=== PATIENT | female | born 1945 | race Caucasian/White ===

== ENCOUNTER 2018-12-07 14:54 | Outpatient (RCR) | payer MEDICARE, OTHER, SELFPAY ==
[~2018-12-07 14:54] MED LIST: ADV500INH INH; ATOR1TAB19 PO; AZIT500T2 PO; BISA5TAB7 PO; BREO1INH3 PO; CALC500C16 PO; CALTCHW5 PO; CIDA500T2 PO; COLA100C5 PO; DICL13PA TD; FOSA70TA PO; IBUPOTC PO; IPRA0.00 NEB; LEVA750T7 PO; LEVOTHROID PO; LIDO1OIN2 TOP; LIDO5DIS41 TD; MIRA3350 PO; MUCI600T37 PO; MULTCAP PO; PROAAER10 INH; PROP10TA56 PO; PROTPAK PO; SPIR1CAP INH; SYNT100T PO
== END 2018-12-09 ==
LOC: M PR 14:54
PROVIDERS: ATTEND Internal Medicine Pulmonary Disease
DX: J44.9 Chronic obstructive pulmonary disease, unspecified (principal)
CPT/HCPCS: G0424 ×3

== ENCOUNTER → 2019-01-09 | Outpatient (RCR) | payer MEDICARE | LOC: M PR 12-12 10:24 | PROVIDERS: ATTEND Internal Medicine Pulmonary Disease | DX: J44.9 Chronic obstructive pulmonary disease, unspecified (principal) | CPT/HCPCS: G0424 ×10 ==

== ENCOUNTER 2019-02-07 11:10 | Outpatient (RCR) | payer MEDICARE | END 2019-02-09 | LOC: M PR 11:10 | PROVIDERS: ATTEND Internal Medicine Pulmonary Disease | DX: J44.9 Chronic obstructive pulmonary disease, unspecified (principal) | CPT/HCPCS: G0424 ×7 ==

== ENCOUNTER 2019-02-27 13:18 | Outpatient (RCR) | payer MEDICARE | END 2019-03-11 | LOC: M PR 13:18 | PROVIDERS: ATTEND Internal Medicine Pulmonary Disease | DX: J44.9 Chronic obstructive pulmonary disease, unspecified (principal) | CPT/HCPCS: G0424 ×5 ==

== ENCOUNTER → 2020-02-12 | Outpatient (REF) | payer MEDICARE ==
[~2020-02-12] MED LIST changes: -AZIT500T2 PO; +AZIT500T5 PO
[2020-02-12 17:59] LABS: APPEARANCE, URINE CLEAR (CLEAR); BACTERIA, URINE AUTO NEGATIVE (NEGATIVE); BILIRUBIN, URINE AUTO NEGATIVE (NEGATIVE); BLOOD, URINE BLOOD NEGATIVE (NEGATIVE); COLOR, URINE COLORLESS (YELLOW); GLUCOSE, URINE (UA) AUTO NEGATIVE (NEGATIVE); KETONE, URINE AUTO NEGATIVE (NEGATIVE); LEUKOCYTE ESTERASE, URINE AUTO NEGATIVE (NEGATIVE); NITRITE, URINE AUTO NEGATIVE (NEGATIVE); PROTEIN, URINE AUTO NEGATIVE (NEGATIVE); RBC, URINE AUTO 0 /HPF (0-3); SPECIFIC GRAVITY URINE AUTO 1.003 (1.002-1.035); SQUAMOUS EPITHELIAL CELL UR AU 0 /HPF (0-6); UROBILINOGEN, URINE AUTO 0.2 mg/dL (0.0-2.0); WBC, URINE AUTO 0 /HPF (0-3)
== END ==
LOC: M LAB REF 17:06
PROVIDERS: ATTEND Nurse Practitioner Family
DX: R39.81 Functional urinary incontinence (principal)
CPT/HCPCS: 51798; 81000; 81001; 87086; G0463

== ENCOUNTER → 2020-03-09 | Outpatient (CLI) | payer MEDICARE ==
--- NOTE | 2020-03-23 16:35 | REP ---
PET CT HISTORY: Other nonspecific abnormal finding of lung field. TECHNIQUE: 61 minutes following the intravenous injection of an 8.39 mCi dose of F18 fluorodeoxyglucose (FDG), three-dimensional PET CT imaging is acquired from the skull base to the proximal thighs in the usual fashion. COMPARISON: Chest CT study has been retrieved from [facility] dated 02/06/2020. This was read as showing a 1.3 cm spiculated density in the left upper lobe and an 8.6 mm spiculated nodule in the left upper lobe. Chest CT is also reviewed from 10/20/2015. PET CT FINDINGS: The recently identified spiculated nodules in the left upper lobe show visible, but non-hypermetabolic FDG accumulation. Maximum standard uptake value is only 1.33. There is no discernable uptake in the remaining 5 mm nodule in the left upper lobe. There is a non-hypermetabolic, but visible uptake, n an area of pleural parenchymal scarring in the right apex, maximum standard uptake value 1.49. No other abnormal pulmonary parenchymal FDG accumulation is seen. No abnormal hilar or mediastinal david uptake is observed. The head and neck soft tissues are unremarkable. In the abdomen and pelvis, normal FDG distribution is seen. No abnormal abdominal or pelvis hypermetabolic focus is seen. IMPRESSION: Negative PET scintigraphy. No hypermetabolic uptake in the left upper lobe nodules. Continued CT follow-up recommended. MTDD
== END ==
LOC: M PLARAD 10:20
PROVIDERS: ATTEND Internal Medicine Pulmonary Disease
DX: R91.8 Other nonspecific abnormal finding of lung field (principal)
CPT/HCPCS: 78815; A9552

== ENCOUNTER → 2020-06-25 | Outpatient (CLI) | payer MEDICARE ==
--- NOTE | 2020-06-26 05:54 | REP ---
INDICATION: COPD COMPARISON: Outside examination dated 02/06/2020. PET-CT dated 03/09/2020 TECHNIQUE: Axial noncontrast images from the thoracic inlet to the upper abdomen with coronal and sagittal reformations. This CT examination was performed using the following dose reduction techniques: Automated exposure control, adjustment of mA and/or kv according to the patient's size, and use of iterative reconstruction technique. FINDINGS: Moderate to advanced COPD/emphysematous changes with scattered scarring and bronchiectasis again noted and stable. New or nodules identified on the outside examination dated 02/06/2020 appear to have essentially resolved. PET-CT exam dated 03/09/2020 was negative for hypermetabolic activity. No new consolidation, significant nodule or mass lesion identified. No pleural effusion. No pneumothorax. Mediastinum demonstrates atherosclerotic changes to the thoracic aorta and coronary arteries without aortic aneurysm or cardiomegaly. No pericardial effusion. No significant adenopathy. Surrounding musculoskeletal structures demonstrate age-related changes without acute osseous abnormality. IMPRESSION: 1. Moderate to advanced COPD/emphysematous changes with scattered scarring similar to prior examination. Previously noted left upper lobe nodules have essentially resolved. 2. No new significant consolidation, nodule/mass, or effusion. 3. Consider annual low-dose CT lung screening evaluation given the patient's high risk factors. <Electronically signed by Brant Cohn > 06/26/20 [id number]
== END ==
LOC: M RAD 14:01
PROVIDERS: ATTEND Internal Medicine Pulmonary Disease
DX: J44.9 Chronic obstructive pulmonary disease, unspecified (principal)

== ENCOUNTER → 2020-08-06 | Outpatient (CLI) | payer MEDICARE ==
[~2020-08-06] MED LIST changes: +ALBU83IN INH; +D31000TA2 PO; +NO ITAB PO; +SALINE; +SPIR12.9 INH; +SYNT88TA2 PO; +VITA-243 PO; +ZINC1TAB2 PO; +acetylcysteine INH
== END ==
LOC: M LABSMTC 09:49
PROVIDERS: ATTEND Anesthesiology
DX: Z01.812 Encounter for preprocedural laboratory examination (principal); Z20.822 Contact with and (suspected) exposure to COVID-19

== ENCOUNTER 2020-08-11 09:14 | Day surgery (SDC) | payer MEDICARE ==
[~2020-08-11] VITALS: Ht 162.6 cm; Wt 61.4 kg
[~2020-08-11 09:14] MED LIST changes: +NS 1,000 ML IV ONE
[2020-08-11] MEDS ORDERED: MUCI600T31 PO (09:43)
[2020-08-11] MEDS ORDERED: PROAAER10 INH (09:43)
[2020-08-11] MEDS ORDERED: propofoL 200 MG/20 ML VIAL As Ordered ONE (10:20)
[2020-08-11] MEDS ORDERED: LIDOCAINE 2% 100MG/5ML SDV (FOR ANES.) As Ordered ONE (10:20)
--- NOTE | 2020-08-11 11:26 | ROOR ---
Patient Name: Anabelle Oro Procedure Date: 08/11/2020 10:32 AM Date of : 1945 Age: 75 Room: [facility] Gender: Female Note Status: Finalized Procedure: Colonoscopy Indications: High risk colon cancer surveillance: Personal history of colonic polyps, Last colonoscopy: May 2015 Providers: Hernandez JACKSON MD Referring MD: MICHA HOPKINS DO Requesting Provider: Medicines: Monitored Anesthesia Care Complications: No immediate complications. Procedure: Pre-Anesthesia Assessment: - The heart rate, respiratory rate, oxygen saturations, blood pressure, adequacy of pulmonary ventilation, and response to care were monitored throughout the procedure. The Colonoscope was introduced through the anus and advanced to the terminal ileum, with identification of the appendiceal orifice and IC valve. The colonoscopy was performed without difficulty. The patient tolerated the procedure well. The quality of the bowel preparation was good. Findings: The perianal and digital rectal examinations were normal. A 20 mm polyp was found in the distal sigmoid colon. The polyp was carpet-like. Polypectomy was attempted, initially using a piecemeal technique with a hot snare. Most of the polyp was removed, however polyp resection was incomplete with this device. This intervention then required a different device and polypectomy technique. The remainder of the polyp was removed with a piecemeal technique using a small cold snare. Resection and retrieval were complete. Area was tattooed with an injection of 1 mL of Mariely ink just distal to the polypectomy site. Four sessile polyps were found in the descending colon, splenic flexure and hepatic flexure. The polyps were diminutive in size. These polyps were removed with a cold snare. Resection and retrieval were complete. Multiple diverticula were found in the sigmoid colon. Small Internal Hemorrhoids. Impression: - One 15-20 mm flat polyp in the distal sigmoid colon, removed piecemeal using a hot and cold snares. Resected and retrieved. Tattooed. - Four diminutive polyps in the descending colon, at the splenic flexure and at the hepatic flexure, removed with a cold snare. Resected and retrieved. - Diverticulosis in the sigmoid colon. - Small Internal Hemorrhoids. Recommendation: - Repeat colonoscopy for surveillance based on pathology results. - Telephone endoscopist for pathology results in 2 weeks. Procedure Code(s): --- Professional --- 52066, Colonoscopy, flexible; with removal of tumor(s), polyp(s), or other lesion(s) by snare technique 35692, Colonoscopy, flexible; with directed submucosal injection(s), any substance Diagnosis Code(s): --- Professional --- K63.5, Polyp of colon Z86.010, Personal history of colonic polyps K57.30, Diverticulosis of large intestine without perforation or abscess without bleeding CPT copyright 2019 [employer]. All rights reserved. The codes documented in this report are preliminary and upon canal boat operator review may be revised to meet current compliance requirements. Hernandez Jackson MD Hernandez JACKSON MD 08/11/2020 11:26:53 AM Electronically signed by Hernandez JACKSON MD Number of Addenda: 0 Note Initiated On: 08/11/2020 10:32 AM Estimated Blood Loss: Estimated blood loss: none.
[2020-08-11 11:40] VITALS: BP 128/74
== END 2020-08-11 12:07 | disposition home or self-care (01) ==
LOC: M OPP 09:14
PROVIDERS: ATTEND Internal Medicine Gastroenterology
DX: Z12.11 Encounter for screening for malignant neoplasm of colon (principal); Z86.010 Personal history of colon polyps; Z80.0 Family history of malignant neoplasm of digestive organs; K57.30 Diverticulosis of large intestine without perforation or abscess without bleeding; K63.5 Polyp of colon; K64.8 Other hemorrhoids; E03.9 Hypothyroidism, unspecified; J44.9 Chronic obstructive pulmonary disease, unspecified; Z79.899 Other long term (current) drug therapy

== ENCOUNTER → 2020-12-22 | Outpatient (CLI) | payer MEDICARE ==
[~2020-12-22] MED LIST changes: +MUCI600T31 PO; -NS 1,000 ML IV ONE
== END ==
LOC: M PLAIMG 13:22
PROVIDERS: ATTEND Internal Medicine
DX: J44.9 Chronic obstructive pulmonary disease, unspecified (principal)

== ENCOUNTER → 2021-01-01 | Outpatient (CLI) | payer MEDICARE ==
--- NOTE | 2021-01-01 13:51 | REP ---
INDICATION: DYSPNEA, STAGE 4 COPD COMPARISON: 10/24/2015. CT 12/22/2020. TECHNIQUE: PA/Lateral FINDINGS: Lungs: There is mild diffuse chronic interstitial prominence with no consolidating infiltrate. There is mild hyperinflation. Heart: Normal in size. Mediastinum: Mediastinal silhouette unremarkable. Pleural angles: Unremarkable.. Bones and soft tissues: Unremarkable. IMPRESSION: No acute pulmonary disease. A stable chronic changes. <Electronically signed by Danial Mandujano > 01/01/21 [id number]
--- NOTE | 2021-01-01 14:38 | REP ---
INDICATION: DYSPNEA, STAGE 4 COPD. COMPARISON: Comparison is made with today's chest x-ray.. TECHNIQUE: 1.0 mCi of technetium 99m DTPA aerosol is utilized for the ventilation study and is followed by a 5.5 mCi dose of intravenous technetium 99m MAA for the perfusion study. A sequence of 8 planar images are acquired for each portion of the study. FINDINGS: Ventilation study shows is mild central bronchial deposition of inspired ventilatory tracer. There is very patchy abnormal uptake pattern throughout the lung celeste on ventilation study consistent with severe COPD. Multiple ventilation defects are noted bilaterally. The perfusion study shows slightly more homogeneous but still patchy uptake bilaterally. There are multiple matched V/Q defects bilaterally. The perfusion study shows better distribution of tracer to than the ventilation study. No mismatch defect is appreciated. IMPRESSION: Intermediate to indeterminate probability for pulmonary embolus. Severe COPD. Multiple matched defects. No mismatched defect is appreciated. <Electronically signed by Enmanuel Romero > 01/01/21 [id number]
== END ==
LOC: M RAD 13:01
PROVIDERS: ATTEND Internal Medicine
DX: R60.0 Localized edema (principal); J44.9 Chronic obstructive pulmonary disease, unspecified; J84.9 Interstitial pulmonary disease, unspecified
CPT/HCPCS: 71046; 78582; A9540; A9567

== ENCOUNTER → 2021-01-25 | Outpatient (CLI) | payer MEDICARE ==
--- NOTE | 2021-01-25 14:57 | REP ---
INDICATION: DIAGNOSING SOLITARY PULMONARY NODULE. COMPARISON: Comparison is made with CT chest December 22, 2020.. TECHNIQUE: Fifty minutes following the intravenous injection of a 9.0 mCi dose of F-18 FDG, three-dimensional PET scintigraphy is acquired from the skull base to the proximal thighs. Triplanar noncontrast CT scanning is acquired through the same anatomic range for attenuation correction, and image registration with scan parameters optimized to minimize radiation exposure to the patient. PET scintigraphy and CT datasets were fused and displayed on a workstation with multiplanar and projection display capability. FINDINGS: The areolar nodular density in the right lung apex appears morphologically improved compared with the recent chest CT. It does show a visible although non hypermetabolic uptake. Maximum standard uptake value is 1.78. The left upper lobe contains 2 small stable nodules which do not show any discernible FDG uptake. No hilar or mediastinal hypermetabolic uptake is seen. In the abdomen and pelvis, normal hepatic, splenic, gastrointestinal, and genitourinary FDG accumulation is seen. No abnormal hypermetabolic uptake is seen in the abdomen or pelvis. Head and neck soft tissues are unremarkable. IMPRESSION: Right upper lobe shows visible but non hypermetabolic uptake. CT follow-up is recommended. Otherwise negative PET scintigraphy. <Electronically signed by Enmanuel Romero > 01/25/21 [id number]
== END ==
LOC: M PLARAD 11:52
PROVIDERS: ATTEND Internal Medicine Pulmonary Disease
DX: R91.1 Solitary pulmonary nodule (principal)
CPT/HCPCS: 78815; A9552

== ENCOUNTER → 2021-03-24 | Outpatient (CLI) | payer MEDICARE ==
--- NOTE | 2021-03-27 11:28 | ECHO ---
ECHOCARDIOGRAM DATE OF PROCEDURE: 03/24/2021 Age: 75 Gender: Female Height: Weight: REFERRING PROVIDER: Tammi Maradiaga M.D. PATIENT LOCATION: Outpatient. REASON FOR THE STUDY: Shortness of breath, chronic obstructive pulmonary disease (COPD). MEASUREMENTS: 2D Measurements: IVS 0.9 cm LV 4.1 cm LVPW 0.8 cm LA 2.1 cm Aorta 3.0 Doppler Measurements: Mitral E 0.54 Mitral A 0.8 with a ratio of 0.7 2D COMMENTS: 1. Normal left ventricular size, wall thickness and normal global left ventricular systolic function. The estimated left ventricular systolic ejection fraction is 60-65%. 2. Normal left atrium. Normal right atrium and right ventricle. 3. The atrial septum appeared to be normal without evidence of defect or shunt. 4. Normal aortic root. 5. No pericardial effusion seen. 6. Minimally calcified aortic valve with normal leaflet excursion. Mildly calcified mitral annulus with normal anterior mitral valve leaflet motion. Normal tricuspid valve. The pulmonic valve and proximal pulmonary artery branches were not well visualized. 7. The inferior vena cava was not visualized. DOPPLER: It detects mild aortic regurgitation, trace mitral regurgitation and trace tricuspid regurgitation. Abnormal relaxation pattern was noted across the mitral valve leaflets as well as the mitral valve annulus consistent with features of grade 1 left ventricular diastolic dysfunction. IMPRESSION: 1. Normal global left ventricular systolic function. There are some features of grade 1 left ventricular diastolic dysfunction manifested by abnormal relaxation. 2. Aortic valve sclerosis with mild aortic regurgitation but no aortic stenosis. 3. Mitral annulus calcification with trace mitral regurgitation. 4. Trace tricuspid regurgitation. Calculated pulmonary artery pressure appeared to be normal using the tricuspid valve velocity.
== END ==
LOC: M CARPUL 12:19
PROVIDERS: ATTEND Internal Medicine Pulmonary Disease
DX: J44.9 Chronic obstructive pulmonary disease, unspecified (principal); R94.31 Abnormal electrocardiogram [ECG] [EKG]

== ENCOUNTER → 2021-08-25 | Outpatient (CLI) | payer MEDICARE ==
[~2021-08-25] MED LIST changes: -D31000TA2 PO; +VITA100093 PO
== END ==
LOC: M PLAIMG 14:53
PROVIDERS: ATTEND Internal Medicine Pulmonary Disease
DX: R91.8 Other nonspecific abnormal finding of lung field (principal)

== ENCOUNTER → 2021-10-18 | Outpatient (CLI) | payer MEDICARE | LOC: M PLARAD 09:01 | PROVIDERS: ATTEND Internal Medicine Pulmonary Disease | DX: R91.8 Other nonspecific abnormal finding of lung field (principal); J43.2 Centrilobular emphysema; I70.0 Atherosclerosis of aorta; I25.10 Atherosclerotic heart disease of native coronary artery without angina pectoris; K57.30 Diverticulosis of large intestine without perforation or abscess without bleeding; N28.1 Cyst of kidney, acquired | CPT/HCPCS: 78815; A9552 ==

== ENCOUNTER → 2022-01-19 | Outpatient (CLI) | payer MEDICARE ==
[~2022-01-19] MED LIST changes: +ALBU2.5V10 INH; -ALBU83IN INH
== END ==
LOC: M PLAIMG 10:47
PROVIDERS: ATTEND Internal Medicine Pulmonary Disease
DX: R91.8 Other nonspecific abnormal finding of lung field (principal)

== ENCOUNTER 2022-06-30 21:00 | Emergency (ER) | payer MEDICARE ==
[~2022-06-30] VITALS: Ht 162.6 cm; Wt 59.1 kg
[~2022-06-30 21:00] MED LIST changes: +ALEN70TA87 PO; -FOSA70TA PO
[2022-06-30 23:05] LABS: APPEARANCE, URINE MANUAL CLEAR (CLEAR); COLOR, URINE MANUAL COLORLESS (YELLOW); PH,URINE MAN 8.5 UNITS (5.0 - 7.0)
[2022-06-30 23:06] LABS: BILIRUBIN, URINE MANUAL NEGATIVE (NEGATIVE); BLOOD URINE MANUAL NEGATIVE (NEGATIVE); GLUCOSE, URINE (UA) MANUAL NEGATIVE (NEGATIVE); KETONE, URINE MANUAL NEGATIVE (NEGATIVE); LEUKOCYTE ESTERASE, URINE MAN NEGATIVE (NEGATIVE); NITRITE, URINE MANUAL NEGATIVE (NEGATIVE); PROTEIN, URINE MANUAL NEGATIVE (NEGATIVE); UROBILINOGEN, URINE MANUAL NORMAL (NORMAL)
[2022-06-30 23:06] LABS: BASO # 0.1 10^3/uL (0.0-0.2); BASO % 0.9 % (0.0-1.0); EOS # 0.5 10^3/uL (0.0-0.5); EOS % 8.1 % (0.0-3.0); HEMATOCRIT 37.7 % (36.0-47.0); LYMPH # 1.1 10^3/uL (1.5-5.0); LYMPH % 16.8 % (24.0-44.0); MEAN CORPUSCULAR HEMOGLOBIN 29.2 pg (27.0-33.0); MEAN CORPUSCULAR HGB CONC 31.8 g/dl (32.0-36.5); MEAN CORPUSCULAR VOLUME 91.7 fl (80.0-96.0); MONO # 1.1 10^3/uL (0.0-0.8); MONO % 16.5 % (2.0-8.0); NEUTROPHILS # 3.8 10^3/uL (1.5-8.5); NEUTROPHILS % 57.2 % (36.0-66.0); PLATELET COUNT, AUTOMATED 260 10^3/uL (150-450); RED BLOOD COUNT 4.11 10^6/uL (4.00-5.40); WHITE BLOOD COUNT 6.6 10^3/uL (4.0-10.0)
[2022-06-30 23:27] LABS: BLOOD UREA NITROGEN 11 MG/DL (9-23); CALCIUM LEVEL 9.2 MG/DL (8.3-10.6); CARBON DIOXIDE LEVEL 33 MMOL/L (20-31); CHLORIDE LEVEL 99 MMOL/L (98-107); CREATININE FOR GFR 0.62 MG/DL (0.55-1.30); GLOMERULAR FILTRATION RATE > 60.0 (>39); GLUCOSE, FASTING 124 MG/DL (74-106); POTASSIUM SERUM 4.3 MMOL/L (3.5-5.1); SODIUM LEVEL 137 MMOL/L (136-145)
[2022-07-01] MEDS ORDERED: KETOROLAC 30 MG/ML 1ML VIAL IV ONE (03:20)
[2022-07-01 04:02] LABS: LIPASE 29 U/L (12-53)
[2022-07-01 04:04] LABS: ALBUMIN 3.2 G/DL (3.2-5.2); ALKALINE PHOSPHATASE 99 U/L (46-116); ALT/SGPT 19 U/L (7.0-40); AST/SGOT 20 U/L (<34); BILIRUBIN,DIRECT < 0.1 MG/DL (<0.4); BILIRUBIN,TOTAL 0.2 MG/DL (0.3-1.2); TOTAL PROTEIN 6.5 G/DL (5.7-8.2)
[2022-07-01 06:15] VITALS: BP 110/62
== END 2022-07-01 06:32 | disposition home or self-care (01) ==
LOC: M ED 21:00
DX: K59.00 Constipation, unspecified (principal); J44.9 Chronic obstructive pulmonary disease, unspecified; J43.9 Emphysema, unspecified; E03.9 Hypothyroidism, unspecified; Z90.49 Acquired absence of other specified parts of digestive tract; N28.1 Cyst of kidney, acquired; Z79.51 Long term (current) use of inhaled steroids; Z79.890 Hormone replacement therapy; Z79.899 Other long term (current) drug therapy

== ENCOUNTER → 2022-12-23 | Outpatient (CLI) | payer MEDICARE | LOC: M RAD 10:50 | PROVIDERS: ATTEND Internal Medicine Pulmonary Disease | DX: R91.8 Other nonspecific abnormal finding of lung field (principal); J43.9 Emphysema, unspecified; I25.10 Atherosclerotic heart disease of native coronary artery without angina pectoris; I70.0 Atherosclerosis of aorta; K44.9 Diaphragmatic hernia without obstruction or gangrene; N20.0 Calculus of kidney ==

== ENCOUNTER 2023-05-19 09:59 | Day surgery (SDC) | payer MEDICARE ==
[~2023-05-19] VITALS: Ht 162.6 cm; Wt 55.2 kg
[~2023-05-19 09:59] MED LIST changes: +GUAI1TAB72 PO; +NS 1,000 ML IV ONE; +PEPC1TAB5 PO; +PROA1AER2 INH; +SYMB16INH INH
[2023-05-19] MEDS ORDERED: propofoL 200 MG/20 ML VIAL As Ordered ONE (11:46)
[2023-05-19] MEDS ORDERED: LIDOCAINE 2% 100MG/5ML SDV (FOR ANES.) As Ordered ONE (11:46)
[2023-05-19 12:17] VITALS: TEMP 97.6
[2023-05-19 12:30] VITALS: BP 133/56; O2SAT 100
== END 2023-05-19 12:54 | disposition home or self-care (01) ==
LOC: M OPP 09:59
PROVIDERS: ATTEND Internal Medicine Gastroenterology
DX: Z86.010 Personal history of colon polyps (principal); Z80.0 Family history of malignant neoplasm of digestive organs; K63.5 Polyp of colon; D12.8 Benign neoplasm of rectum; K57.30 Diverticulosis of large intestine without perforation or abscess without bleeding; R12 Heartburn; G47.8 Other sleep disorders; Z79.02 Long term (current) use of antithrombotics/antiplatelets; Z79.1 Long term (current) use of non-steroidal anti-inflammatories (NSAID); Z79.2 Long term (current) use of antibiotics; Z79.51 Long term (current) use of inhaled steroids; Z79.890 Hormone replacement therapy; Z79.899 Other long term (current) drug therapy; Z88.1 Allergy status to other antibiotic agents

== ENCOUNTER 2023-06-15 11:23 | Inpatient (IN) | payer MEDICARE ==
[~2023-06-15] VITALS: Ht 162.6 cm; Wt 56.1 kg
[~2023-06-15 11:23] MED LIST changes: -NS 1,000 ML IV ONE
[2023-06-15 12:53] LABS: BASO % 0.2 % (0.0-1.0); EOS # 0.1 10^3/uL (0.0-0.5); EOS % 1.1 % (0.0-3.0); HEMATOCRIT 35.5 % (36.0-47.0); HEMOGLOBIN 11.4 g/dl (12.0-15.5); LYMPH # 0.7 10^3/uL (1.5-5.0); MEAN CORPUSCULAR HGB CONC 32.1 g/dl (32.0-36.5); MEAN CORPUSCULAR VOLUME 93.4 fl (80.0-96.0); MONO # 0.6 10^3/uL (0.0-0.8); MONO % 13.8 % (2.0-8.0); NEUTROPHILS % 67.8 % (36.0-66.0); PLATELET COUNT, AUTOMATED 204 10^3/uL (150-450); WHITE BLOOD COUNT 4.4 10^3/uL (4.0-10.0)
[2023-06-15] MEDS ORDERED: IPRATROPIUM 0.5MG/ALBUTEROL 2.5MG INH SOL UD 3ML (DUONEB) NEB ONE ×3 (13:00→15:40)
[2023-06-15 13:04] LABS: INR 1.01
[2023-06-15 13:05] LABS: PARTIAL THROMBOPLASTIN TIME 27.7 SECONDS (24.8-34.2)
[2023-06-15 13:15] LABS: CK-MB VALUE MASS 1.9 NG/ML (<3.6)
[2023-06-15 13:18] LABS: ALBUMIN 3.3 G/DL (3.2-5.2); ALKALINE PHOSPHATASE 82 U/L (46-116); ALT/SGPT 27 U/L (7.0-40); AST/SGOT 24 U/L (<34); BILIRUBIN,DIRECT 0.1 MG/DL (<0.4); BILIRUBIN,TOTAL 0.3 MG/DL (0.3-1.2); BLOOD UREA NITROGEN 10 MG/DL (9-23); CALCIUM LEVEL 8.4 MG/DL (8.3-10.6); CARBON DIOXIDE LEVEL 38 MMOL/L (20-31); CHLORIDE LEVEL 96 MMOL/L (98-107); CPK CREATINE PHOSPHOKINASE 47 U/L (34-145); CREATININE FOR GFR 0.49 MG/DL (0.55-1.30); GLOMERULAR FILTRATION RATE > 60.0 (>32); GLUCOSE, FASTING 105 MG/DL (74-106); MB/CK RELATIVE INDEX 4.04 (< OR =4); SODIUM LEVEL 133 MMOL/L (136-145); THYROID STIMULATING HORMONE 9.593 uIU/ML (0.55-4.78); TOTAL PROTEIN 6.1 G/DL (5.7-8.2)
[2023-06-15 13:20] LABS: FREE T4 1.37 NG/DL (0.89-1.76)
[2023-06-15 13:38] LABS: ABG BASE EXCESS 9.2 (-2.0-2.0); ABG HCO3 36.2 MMOL/L (22.0-26.0); ABG O2 SATURATION 96.1 % (95.0-99.0); ABG PARTIAL PRESSURE O2 81.2 mmHg (75.0-100.0); ABG STANDARD HCO3 32.9 MMOL/L. (22.0-26.0); ABG TOTAL CO2 38.1 MMOL/L (23.0-31.0); ABG pH (ARTERIAL) 7.388 UNITS (7.350-7.450)
[2023-06-15 13:40] LABS: ABG PARTIAL PRESSURE CO2 61.4 mmHg (35.0-45.0)
[2023-06-15 14:03] LABS: CK-MB VALUE MASS 1.7 NG/ML (<3.6)
[2023-06-15 14:04] LABS: MB/CK RELATIVE INDEX 4.14 (< OR =4)
[2023-06-15] MEDS ORDERED: methylPREDNISolone 125MG 2ML VIAL IV ONE (14:05)
[2023-06-15] MEDS ORDERED: ISOVUE-370 76% 100ML VIAL As Ordered ONE (14:11)
[2023-06-15 16:52] VITALS: O2SAT 92
[2023-06-15] MEDS ORDERED: AZIT-12 PO (17:52)
[2023-06-15] MEDS ORDERED: HOME MED LIST COMPLETE! XX SCH (17:55)
[2023-06-15] MEDS ORDERED: MOM 30ML SUSPENSION UDC PO PRN (18:15)
[2023-06-15 19:09] LABS: C REACTIVE PROTEIN QUANTITATIV 1.2 MG/DL (<1.0)
[2023-06-15 19:32] LABS: PROCALCITONIN 0.08 ng/ml
[2023-06-15] MEDS ORDERED: COMBIVENT RESPIMAT 100-20MCG INHALER 4GM INH SCH (20:00)
[2023-06-15 20:19] LABS: INR 1.01
[2023-06-15] MEDS: ATORVASTATIN 10 MG TAB PO SCH (20:24)
[2023-06-15] MEDS: AZITHROMYCIN 250MG TABLET PO SCH (20:25)
[2023-06-15] MEDS: SYMBICORT 160/4.5MCG INHALER 6GM INH SCH (20:31)
[2023-06-15] MEDS: COMBIVENT RESPIMAT 100-20MCG INHALER 4GM INH SCH (20:31)
[2023-06-15] MEDS: PROPRANOLOL 10 MG TAB PO SCH (20:36)
[2023-06-15] MEDS: MIRALAX *UNIT DOSE* 17GM PACKET PO SCH (21:00)
[2023-06-15] MEDS: DOCUSATE SODIUM 100MG CAPSULE PO SCH (21:00)
[2023-06-15] MEDS: METAMUCIL (PSYLLIUM) PACKET PO SCH (21:00)
[2023-06-16] VITALS (12 sets, daily range): BP systolic 130–180; BP diastolic 63–90; TEMP 96.2–98.6; O2SAT 93–100
[2023-06-16] MEDS: methylPREDNISolone 125MG 2ML VIAL IV SCH ×4 (01:54→23:51)
[2023-06-16] MEDS: CAPTOpril 6.25 MG PER 1/2 TABLET PO SCH ×2 (01:55→06:00)
[2023-06-16] MEDS: COMBIVENT RESPIMAT 100-20MCG INHALER 4GM INH SCH ×6 (02:34→19:33)
[2023-06-16] MEDS: ACETAMINOPHEN TAB 650MG DOSE (2X325MG) PO PRN ×2 (02:51→18:46)
[2023-06-16 04:59] LABS: HEMATOCRIT 33.3 % (36.0-47.0); HEMOGLOBIN 10.8 g/dl (12.0-15.5); MEAN CORPUSCULAR HEMOGLOBIN 29.8 pg (27.0-33.0); MEAN CORPUSCULAR HGB CONC 32.4 g/dl (32.0-36.5); MEAN CORPUSCULAR VOLUME 91.7 fl (80.0-96.0); PLATELET COUNT, AUTOMATED 217 10^3/uL (150-450); RED BLOOD COUNT 3.63 10^6/uL (4.00-5.40); WHITE BLOOD COUNT 2.9 10^3/uL (4.0-10.0)
[2023-06-16 05:22] LABS: BLOOD UREA NITROGEN 11 MG/DL (9-23); CALCIUM LEVEL 8.7 MG/DL (8.3-10.6); CARBON DIOXIDE LEVEL 35 MMOL/L (20-31); CHLORIDE LEVEL 94 MMOL/L (98-107); GLOMERULAR FILTRATION RATE > 60.0 (>32); GLUCOSE, FASTING 141 MG/DL (74-106); POTASSIUM SERUM 4.2 MMOL/L (3.5-5.1); SODIUM LEVEL 135 MMOL/L (136-145)
[2023-06-16] MEDS: LEVOTHYROXINE 100MCG TABLET (0.1MG) PO SCH (06:02)
[2023-06-16] MEDS ORDERED: LABETALOL 100MG/20ML VIAL IV ONE (06:25)
[2023-06-16] MEDS: MIRALAX *UNIT DOSE* 17GM PACKET PO SCH ×2 (08:06→20:36)
[2023-06-16] MEDS: METAMUCIL (PSYLLIUM) PACKET PO SCH ×2 (08:06→20:36)
[2023-06-16] MEDS: AZITHROMYCIN 250MG TABLET PO SCH (08:06)
[2023-06-16] MEDS: PROPRANOLOL 10 MG TAB PO SCH ×2 (08:06→20:36)
[2023-06-16] MEDS: lisinopriL 40MG TAB PO SCH (08:07)
[2023-06-16] MEDS: FAMOTIDINE 20 MG TAB PO SCH (08:07)
[2023-06-16] MEDS: DOCUSATE SODIUM 100MG CAPSULE PO SCH ×3 (08:07→20:40)
[2023-06-16] MEDS: TIOTROPIUM INHALER/CAPSULE (SPIRIVA) INH SCH (08:43)
[2023-06-16] MEDS: SYMBICORT 160/4.5MCG INHALER 6GM INH SCH ×2 (08:43→19:33)
[2023-06-16] MEDS: ACETYLCYSTEINE 20% 4 ML VIAL (200MG/ML) INH SCH ×3 (08:44→16:06)
[2023-06-16] MEDS ORDERED: FLUTICASONE PROP 0.05% NASAL SPRAY 16 GM (FLONASE) NARES SCH (09:00)
[2023-06-16] MEDS ORDERED: FLUTICASONE PROP 0.05% NASAL SPRAY 16 GM (FLONASE) NARES PRN (09:00)
[2023-06-16] MEDS: ALBUTEROL SULFATE 2.5MG/0.5ML INH NEB SOLN INH PRN (16:06)
[2023-06-16] MEDS: RIVAROXABAN 10MG TAB (XARELTO) PO SCH (17:36)
[2023-06-16] MEDS: guaiFENesin ER TABLET 600 MG TAB PO PRN (18:44)
[2023-06-16] MEDS: ATORVASTATIN 10 MG TAB PO SCH (20:35)
[2023-06-16] MEDS: NYSTATIN 500,000U/5ML SUSP UDC SS SCH (20:37)
[2023-06-17] VITALS (8 sets, daily range): BP systolic 140–180; BP diastolic 64–86; TEMP 96.4–98; O2SAT 95–100
[2023-06-17] MEDS: ALBUTEROL SULFATE 2.5MG/0.5ML INH NEB SOLN INH PRN ×2 (00:20→13:41)
[2023-06-17] MEDS: ACETYLCYSTEINE 20% 4 ML VIAL (200MG/ML) INH SCH ×4 (00:20→23:04)
[2023-06-17] MEDS ORDERED: MORPHINE 2 MG/ML 1ML VIAL IV ONE ×2 (01:30→03:45)
[2023-06-17] MEDS: ACETAMINOPHEN TAB 650MG DOSE (2X325MG) PO PRN ×3 (03:03→20:15)
[2023-06-17] MEDS: CALCIUM CARBONATE 500 MG CHEW U/D PO PRN (03:03)
[2023-06-17] MEDS: COMBIVENT RESPIMAT 100-20MCG INHALER 4GM INH SCH ×6 (04:00→19:35)
[2023-06-17] MEDS ORDERED: FAMOTIDINE 20 MG TAB PO ONE (04:45)
[2023-06-17] MEDS: LEVOTHYROXINE 100MCG TABLET (0.1MG) PO SCH (06:24)
[2023-06-17] MEDS: methylPREDNISolone 125MG 2ML VIAL IV SCH ×3 (06:25→22:19)
[2023-06-17] MEDS: TIOTROPIUM INHALER/CAPSULE (SPIRIVA) INH SCH (08:08)
[2023-06-17] MEDS: SYMBICORT 160/4.5MCG INHALER 6GM INH SCH ×2 (08:08→19:36)
[2023-06-17] MEDS: METAMUCIL (PSYLLIUM) PACKET PO SCH ×2 (09:00→20:14)
[2023-06-17] MEDS: MIRALAX *UNIT DOSE* 17GM PACKET PO SCH ×2 (09:00→20:14)
[2023-06-17] MEDS: DOCUSATE SODIUM 100MG CAPSULE PO SCH ×2 (09:00→20:14)
[2023-06-17] MEDS: AZITHROMYCIN 250MG TABLET PO SCH (09:33)
[2023-06-17] MEDS: FAMOTIDINE 20 MG TAB PO SCH (09:33)
[2023-06-17] MEDS: NYSTATIN 500,000U/5ML SUSP UDC SS SCH ×3 (09:33→21:00)
[2023-06-17] MEDS: lisinopriL 40MG TAB PO SCH (09:33)
[2023-06-17] MEDS: PROPRANOLOL 10 MG TAB PO SCH ×2 (09:33→20:15)
[2023-06-17] MEDS ORDERED: ALBUTEROL 90 MCG/ACT 8GM HFA INHALER INH PRN (14:10)
[2023-06-17] MEDS: RIVAROXABAN 10MG TAB (XARELTO) PO SCH (17:49)
[2023-06-17] MEDS: ATORVASTATIN 10 MG TAB PO SCH (20:14)
[2023-06-18] VITALS (9 sets, daily range): BP systolic 125–182; BP diastolic 62–90; TEMP 96.4–98.5; O2SAT 93–100
[2023-06-18] MEDS: methylPREDNISolone 125MG 2ML VIAL IV SCH ×3 (06:32→23:33)
[2023-06-18] MEDS: LEVOTHYROXINE 100MCG TABLET (0.1MG) PO SCH (06:32)
[2023-06-18] MEDS: METAMUCIL (PSYLLIUM) PACKET PO SCH ×2 (07:50→20:29)
[2023-06-18] MEDS: MIRALAX *UNIT DOSE* 17GM PACKET PO SCH ×2 (08:00→20:28)
[2023-06-18] MEDS: NYSTATIN 500,000U/5ML SUSP UDC SS SCH ×2 (08:00→20:28)
[2023-06-18] MEDS: FAMOTIDINE 20 MG TAB PO SCH (08:01)
[2023-06-18] MEDS: DOCUSATE SODIUM 100MG CAPSULE PO SCH ×2 (08:01→20:28)
[2023-06-18] MEDS: lisinopriL 40MG TAB PO SCH (08:01)
[2023-06-18] MEDS: AZITHROMYCIN 250MG TABLET PO SCH (08:01)
[2023-06-18] MEDS: PROPRANOLOL 10 MG TAB PO SCH (08:02)
[2023-06-18] MEDS: TIOTROPIUM INHALER/CAPSULE (SPIRIVA) INH SCH (08:06)
[2023-06-18] MEDS: SYMBICORT 160/4.5MCG INHALER 6GM INH SCH ×2 (08:06→21:30)
[2023-06-18] MEDS: COMBIVENT RESPIMAT 100-20MCG INHALER 4GM INH SCH ×5 (08:07→21:30)
[2023-06-18] MEDS: ACETYLCYSTEINE 20% 4 ML VIAL (200MG/ML) INH SCH ×3 (08:07→21:31)
[2023-06-18 08:21] LABS: HEMATOCRIT 35.7 % (36.0-47.0); HEMOGLOBIN 11.6 g/dl (12.0-15.5); MEAN CORPUSCULAR HEMOGLOBIN 29.4 pg (27.0-33.0); MEAN CORPUSCULAR HGB CONC 32.5 g/dl (32.0-36.5); MEAN CORPUSCULAR VOLUME 90.6 fl (80.0-96.0); PLATELET COUNT, AUTOMATED 349 10^3/uL (150-450); RED BLOOD COUNT 3.94 10^6/uL (4.00-5.40); WHITE BLOOD COUNT 9.2 10^3/uL (4.0-10.0)
[2023-06-18 08:32] LABS: BLOOD UREA NITROGEN 16 MG/DL (9-23); CALCIUM LEVEL 9.3 MG/DL (8.3-10.6); CARBON DIOXIDE LEVEL 37 MMOL/L (20-31); CHLORIDE LEVEL 98 MMOL/L (98-107); CREATININE FOR GFR 0.52 MG/DL (0.55-1.30); GLOMERULAR FILTRATION RATE > 60.0 (>32); GLUCOSE, FASTING 132 MG/DL (74-106); SODIUM LEVEL 137 MMOL/L (136-145)
[2023-06-18] MEDS: bisoproloL fumarate 5 MG TAB PO SCH (09:43)
[2023-06-18] MEDS: amLODIPine 5 MG TAB PO SCH (09:43)
[2023-06-18] MEDS: CALCIUM CARBONATE 500 MG CHEW U/D PO PRN (15:22)
[2023-06-18] MEDS: RIVAROXABAN 10MG TAB (XARELTO) PO SCH (17:28)
[2023-06-18] MEDS: ATORVASTATIN 10 MG TAB PO SCH (20:28)
[2023-06-19] VITALS (7 sets, daily range): BP systolic 137–183; BP diastolic 65–91; TEMP 95.7–98.3; O2SAT 95–98
[2023-06-19] MEDS: RAMELTEON 8 MG TAB (ROZEREM) PO PRN ×2 (01:01→21:54)
[2023-06-19] MEDS: COMBIVENT RESPIMAT 100-20MCG INHALER 4GM INH SCH ×7 (01:12→23:04)
[2023-06-19 06:22] LABS: HEMATOCRIT 32.7 % (36.0-47.0); HEMOGLOBIN 10.8 g/dl (12.0-15.5); MEAN CORPUSCULAR HEMOGLOBIN 29.9 pg (27.0-33.0); MEAN CORPUSCULAR VOLUME 90.6 fl (80.0-96.0); PLATELET COUNT, AUTOMATED 328 10^3/uL (150-450); RED BLOOD COUNT 3.61 10^6/uL (4.00-5.40); WHITE BLOOD COUNT 9.1 10^3/uL (4.0-10.0)
[2023-06-19] MEDS: LEVOTHYROXINE 100MCG TABLET (0.1MG) PO SCH (06:34)
[2023-06-19 06:55] LABS: BLOOD UREA NITROGEN 16 MG/DL (9-23); CALCIUM LEVEL 9.1 MG/DL (8.3-10.6); CARBON DIOXIDE LEVEL 37 MMOL/L (20-31); CHLORIDE LEVEL 95 MMOL/L (98-107); CREATININE FOR GFR 0.53 MG/DL (0.55-1.30); GLOMERULAR FILTRATION RATE > 60.0 (>32); GLUCOSE, FASTING 160 MG/DL (74-106); POTASSIUM SERUM 4.2 MMOL/L (3.5-5.1); SODIUM LEVEL 134 MMOL/L (136-145)
[2023-06-19] MEDS: SYMBICORT 160/4.5MCG INHALER 6GM INH SCH ×2 (07:55→20:20)
[2023-06-19] MEDS: ACETYLCYSTEINE 20% 4 ML VIAL (200MG/ML) INH SCH ×3 (07:55→23:04)
[2023-06-19] MEDS: TIOTROPIUM INHALER/CAPSULE (SPIRIVA) INH SCH (07:55)
[2023-06-19] MEDS: NYSTATIN 500,000U/5ML SUSP UDC SS SCH ×2 (08:04→21:54)
[2023-06-19] MEDS: CALCIUM CARBONATE 500 MG CHEW U/D PO PRN (08:05)
[2023-06-19] MEDS: FAMOTIDINE 20 MG TAB PO SCH (08:05)
[2023-06-19] MEDS: lisinopriL 40MG TAB PO SCH (08:05)
[2023-06-19] MEDS: DOCUSATE SODIUM 100MG CAPSULE PO SCH ×2 (08:06→21:54)
[2023-06-19] MEDS: amLODIPine 5 MG TAB PO SCH (08:06)
[2023-06-19] MEDS: guaiFENesin ER TABLET 600 MG TAB PO PRN ×2 (08:06→18:24)
[2023-06-19] MEDS: methylPREDNISolone 125MG 2ML VIAL IV SCH (08:07)
[2023-06-19] MEDS: METAMUCIL (PSYLLIUM) PACKET PO SCH ×2 (08:07→21:00)
[2023-06-19] MEDS: MIRALAX *UNIT DOSE* 17GM PACKET PO SCH ×2 (08:07→21:54)
[2023-06-19] MEDS: bisoproloL fumarate 5 MG TAB PO SCH (08:08)
[2023-06-19] MEDS: OXYMETAZOLINE 0.05% NASAL SPRAY (AFRIN) SCH ×2 (12:27→21:55)
[2023-06-19] MEDS: AZITHROMYCIN 250MG TABLET PO SCH (12:27)
[2023-06-19] MEDS: RIVAROXABAN 10MG TAB (XARELTO) PO SCH (18:21)
[2023-06-19] MEDS ORDERED: predniSONE 20 MG TAB PO SCH (21:00)
[2023-06-19] MEDS: ATORVASTATIN 10 MG TAB PO SCH (21:54)
[2023-06-20] MEDS: COMBIVENT RESPIMAT 100-20MCG INHALER 4GM INH SCH ×6 (03:11→23:15)
[2023-06-20 04:00] VITALS: BP 132/67; TEMP 97; O2SAT 97
[2023-06-20] MEDS: LEVOTHYROXINE 100MCG TABLET (0.1MG) PO SCH (06:17)
[2023-06-20 07:06] LABS: HEMATOCRIT 33.1 % (36.0-47.0); HEMOGLOBIN 10.6 g/dl (12.0-15.5); MEAN CORPUSCULAR HEMOGLOBIN 29.7 pg (27.0-33.0); MEAN CORPUSCULAR VOLUME 92.7 fl (80.0-96.0); PLATELET COUNT, AUTOMATED 362 10^3/uL (150-450); RED BLOOD COUNT 3.57 10^6/uL (4.00-5.40); WHITE BLOOD COUNT 10.4 10^3/uL (4.0-10.0)
[2023-06-20 07:30] LABS: BLOOD UREA NITROGEN 14 MG/DL (9-23); CALCIUM LEVEL 8.8 MG/DL (8.3-10.6); CARBON DIOXIDE LEVEL 38 MMOL/L (20-31); CHLORIDE LEVEL 96 MMOL/L (98-107); CREATININE FOR GFR 0.53 MG/DL (0.55-1.30); GLOMERULAR FILTRATION RATE > 60.0 (>32); GLUCOSE, FASTING 150 MG/DL (74-106); POTASSIUM SERUM 4.7 MMOL/L (3.5-5.1); SODIUM LEVEL 134 MMOL/L (136-145)
[2023-06-20 08:01] VITALS: BP 146/78; TEMP 97.9; O2SAT 96
[2023-06-20] MEDS: METAMUCIL (PSYLLIUM) PACKET PO SCH ×2 (08:06→20:59)
[2023-06-20] MEDS: NYSTATIN 500,000U/5ML SUSP UDC SS SCH ×2 (08:06→20:59)
[2023-06-20] MEDS: MIRALAX *UNIT DOSE* 17GM PACKET PO SCH ×2 (08:06→20:59)
[2023-06-20] MEDS: predniSONE 20 MG TAB PO SCH (08:07)
[2023-06-20] MEDS: FAMOTIDINE 20 MG TAB PO SCH (08:07)
[2023-06-20] MEDS: CALCIUM CARBONATE 500 MG CHEW U/D PO PRN (08:07)
[2023-06-20] MEDS: amLODIPine 5 MG TAB PO SCH (08:07)
[2023-06-20] MEDS: DOCUSATE SODIUM 100MG CAPSULE PO SCH ×2 (08:07→20:59)
[2023-06-20] MEDS: lisinopriL 40MG TAB PO SCH (08:07)
[2023-06-20] MEDS: bisoproloL fumarate 5 MG TAB PO SCH (08:08)
[2023-06-20] MEDS: OXYMETAZOLINE 0.05% NASAL SPRAY (AFRIN) SCH ×2 (08:08→20:59)
[2023-06-20] MEDS: guaiFENesin ER TABLET 600 MG TAB PO PRN (08:08)
[2023-06-20] MEDS: ACETYLCYSTEINE 20% 4 ML VIAL (200MG/ML) INH SCH ×3 (08:14→23:15)
[2023-06-20] MEDS: SYMBICORT 160/4.5MCG INHALER 6GM INH SCH ×2 (08:14→19:41)
[2023-06-20] MEDS: TIOTROPIUM INHALER/CAPSULE (SPIRIVA) INH SCH (08:14)
[2023-06-20 12:04] VITALS: BP 113/62; TEMP 98.3; O2SAT 97
[2023-06-20] MEDS: RIVAROXABAN 10MG TAB (XARELTO) PO SCH (17:57)
[2023-06-20 20:30] VITALS: BP 100/55; TEMP 97.4; O2SAT 98
[2023-06-20] MEDS: ATORVASTATIN 10 MG TAB PO SCH (20:59)
[2023-06-20] MEDS: RAMELTEON 8 MG TAB (ROZEREM) PO PRN (21:00)
[2023-06-21] MEDS: COMBIVENT RESPIMAT 100-20MCG INHALER 4GM INH SCH ×3 (02:52→12:14)
[2023-06-21 03:41] VITALS: BP 113/56; TEMP 97.8; O2SAT 99
[2023-06-21] MEDS: LEVOTHYROXINE 100MCG TABLET (0.1MG) PO SCH (06:21)
[2023-06-21 07:25] LABS: HEMATOCRIT 32.6 % (36.0-47.0); HEMOGLOBIN 10.5 g/dl (12.0-15.5); MEAN CORPUSCULAR HEMOGLOBIN 29.9 pg (27.0-33.0); MEAN CORPUSCULAR HGB CONC 32.2 g/dl (32.0-36.5); MEAN CORPUSCULAR VOLUME 92.9 fl (80.0-96.0); PLATELET COUNT, AUTOMATED 351 10^3/uL (150-450); RED BLOOD COUNT 3.51 10^6/uL (4.00-5.40); WHITE BLOOD COUNT 10.7 10^3/uL (4.0-10.0)
[2023-06-21 07:56] LABS: BLOOD UREA NITROGEN 16 MG/DL (9-23); CALCIUM LEVEL 8.6 MG/DL (8.3-10.6); CARBON DIOXIDE LEVEL 37 MMOL/L (20-31); CHLORIDE LEVEL 96 MMOL/L (98-107); CREATININE FOR GFR 0.56 MG/DL (0.55-1.30); GLOMERULAR FILTRATION RATE > 60.0 (>32); GLUCOSE, FASTING 87 MG/DL (74-106); POTASSIUM SERUM 4.2 MMOL/L (3.5-5.1); SODIUM LEVEL 134 MMOL/L (136-145)
[2023-06-21 08:00] VITALS: BP 151/67; TEMP 97.1; O2SAT 97
[2023-06-21] MEDS: ACETYLCYSTEINE 20% 4 ML VIAL (200MG/ML) INH SCH (08:19)
[2023-06-21] MEDS: TIOTROPIUM INHALER/CAPSULE (SPIRIVA) INH SCH (08:20)
[2023-06-21] MEDS: MIRALAX *UNIT DOSE* 17GM PACKET PO SCH (09:00)
[2023-06-21] MEDS: SYMBICORT 160/4.5MCG INHALER 6GM INH SCH (09:00)
[2023-06-21] MEDS: METAMUCIL (PSYLLIUM) PACKET PO SCH (09:00)
[2023-06-21 09:32] VITALS: BP 125/72
[2023-06-21] MEDS: FAMOTIDINE 20 MG TAB PO SCH (09:32)
[2023-06-21] MEDS: amLODIPine 5 MG TAB PO SCH (09:32)
[2023-06-21] MEDS: bisoproloL fumarate 5 MG TAB PO SCH (09:32)
[2023-06-21] MEDS: predniSONE 20 MG TAB PO SCH (09:32)
[2023-06-21] MEDS: OXYMETAZOLINE 0.05% NASAL SPRAY (AFRIN) SCH (09:33)
[2023-06-21] MEDS: DOCUSATE SODIUM 100MG CAPSULE PO SCH (09:33)
[2023-06-21] MEDS: lisinopriL 40MG TAB PO SCH (09:33)
[2023-06-21] MEDS: NYSTATIN 500,000U/5ML SUSP UDC SS SCH (09:33)
[2023-06-21] MEDS: AZITHROMYCIN 250MG TABLET PO SCH (09:39)
[2023-06-21 09:45] VITALS: BP 122/58
[2023-06-21] MEDS ORDERED: BISO5TAB14 PO (10:09)
[2023-06-21] MEDS ORDERED: PRED10TA2 PO (10:09)
[2023-06-21] MEDS ORDERED: LISI40TA4 PO (10:09)
[2023-06-21] MEDS ORDERED: LEVO100T5 PO (10:09)
[2023-06-21] MEDS ORDERED: MIRA3350 PO (10:09)
[2023-06-21] MEDS ORDERED: HYDR-3363 PO (10:09)
[2023-06-21] MEDS ORDERED: AMLO1TAB24 PO (10:09)
== END 2023-06-21 14:16 | disposition home health service (06) | DRG 178 ==
LOC: EDBD 11:23 → M ED 11:23 → M ED INP 18:12 → M PCU 06-16 02:04
PROVIDERS: ADMIT Student in an Organized Health Care Education/Training Program; ATTEND Student in an Organized Health Care Education/Training Program
DX: U07.1 COVID-19 (principal); J44.1 Chronic obstructive pulmonary disease with (acute) exacerbation; J96.11 Chronic respiratory failure with hypoxia; R13.10 Dysphagia, unspecified; I10 Essential (primary) hypertension; J43.9 Emphysema, unspecified; I25.10 Atherosclerotic heart disease of native coronary artery without angina pectoris; K21.9 Gastro-esophageal reflux disease without esophagitis; K59.00 Constipation, unspecified; G25.0 Essential tremor; E03.9 Hypothyroidism, unspecified; Z79.899 Other long term (current) drug therapy; M81.0 Age-related osteoporosis without current pathological fracture; Z87.891 Personal history of nicotine dependence

== ENCOUNTER → 2024-02-16 | Outpatient (CLI) | payer MEDICARE ==
[~2024-02-16] MED LIST changes: +ACET-683 PO; +ALIG4CAP PO; +AMLO1TAB24 PO; +ASCO500C3 PO; +AZIT-12 PO; +AZIT500T5; +BISO5TAB14 PO; +BUDE0.5S6 INH; +FAMO1TAB11; +HYDR-3363 PO; +LEVO100T5 PO; +LISI40TA4 PO; +OMEP40CA4 PO; +POLY17PO18 PO; +PRED10TA2 PO; +SENN-186 PO; +SUCR1TA PO; +SYNT112T2 PO
== END ==
LOC: M WUC 14:26
PROVIDERS: ATTEND Physician Assistant Medical
DX: R10.84 Generalized abdominal pain (principal); K59.00 Constipation, unspecified; R14.0 Abdominal distension (gaseous)

== ENCOUNTER 2024-02-24 14:04 | Emergency (ER) | payer MEDICARE ==
[~2024-02-24] VITALS: Ht 162.6 cm; Wt 50.8 kg
[~2024-02-24 14:04] MED LIST changes: -ACET-683 PO; -ALIG4CAP PO; -ASCO500C3 PO; -AZIT500T5; -BUDE0.5S6 INH; -FAMO1TAB11; -OMEP40CA4 PO; -POLY17PO18 PO; -SENN-186 PO; -SUCR1TA PO; -SYNT112T2 PO
[2024-02-24] MEDS ORDERED: FAMO1TAB11 (14:18)
[2024-02-24] MEDS ORDERED: AZIT500T5 (14:18)
[2024-02-24 14:22] VITALS: TEMP 97.8
[2024-02-24 15:08] LABS: ABG BASE EXCESS 2.7 (-2.0-2.0); ABG O2 SATURATION 97.8 % (95.0-99.0); ABG PARTIAL PRESSURE CO2 46.4 mmHg (35.0-45.0); ABG PARTIAL PRESSURE O2 95.6 mmHg (75.0-100.0); ABG STANDARD HCO3 26.9 MMOL/L. (22.0-26.0); ABG TOTAL CO2 29.5 MMOL/L (23.0-31.0); ABG pH (ARTERIAL) 7.399 UNITS (7.350-7.450)
[2024-02-24 15:17] LABS: BASO % 0.4 % (0.0-1.0); EOS % 0.4 % (0.0-3.0); HEMATOCRIT 34.3 % (36.0-47.0); HEMOGLOBIN 11.4 g/dl (12.0-15.5); LYMPH # 0.7 10^3/uL (1.5-5.0); LYMPH % 9.2 % (24.0-44.0); MEAN CORPUSCULAR HEMOGLOBIN 30.1 pg (27.0-33.0); MEAN CORPUSCULAR HGB CONC 33.2 g/dl (32.0-36.5); MEAN CORPUSCULAR VOLUME 90.5 fl (80.0-96.0); MONO # 0.4 10^3/uL (0.0-0.8); MONO % 4.8 % (2.0-8.0); NEUTROPHILS # 6.3 10^3/uL (1.5-8.5); NEUTROPHILS % 84.3 % (36.0-66.0); PLATELET COUNT, AUTOMATED 270 10^3/uL (150-450); RED BLOOD COUNT 3.79 10^6/uL (4.00-5.40); WHITE BLOOD COUNT 7.5 10^3/uL (4.0-10.0)
[2024-02-24 15:49] LABS: ALBUMIN 3.7 G/DL (3.2-5.2); ALKALINE PHOSPHATASE 70 U/L (46-116); ALT/SGPT 18 U/L (7.0-40); AST/SGOT 22 U/L (<34); BILIRUBIN,DIRECT 0.1 MG/DL (<0.4); BILIRUBIN,TOTAL 0.4 MG/DL (0.3-1.2); BLOOD UREA NITROGEN 10 MG/DL (9-23); CALCIUM LEVEL 9.5 MG/DL (8.3-10.6); CARBON DIOXIDE LEVEL 34 MMOL/L (20-31); CHLORIDE LEVEL 89 MMOL/L (98-107); CK-MB VALUE MASS 5.7 NG/ML (<3.6); CPK CREATINE PHOSPHOKINASE 70 U/L (34-145); CREATININE FOR GFR 0.59 MG/DL (0.55-1.30); GLOMERULAR FILTRATION RATE > 60.0 (>32); GLUCOSE, FASTING 111 MG/DL (74-106); MB/CK RELATIVE INDEX 8.14 (< OR =4); POTASSIUM SERUM 4.5 MMOL/L (3.5-5.1); SODIUM LEVEL 128 MMOL/L (136-145); TOTAL PROTEIN 6.8 G/DL (5.7-8.2)
[2024-02-24 15:50] LABS: THYROID STIMULATING HORMONE 0.149 uIU/ML (0.55-4.78)
[2024-02-24 16:20] LABS: FREE T4 2.36 NG/DL (0.89-1.76)
[2024-02-24] MEDS ORDERED: ISOVUE-370 76% 100ML VIAL As Ordered ONE (16:23)
[2024-02-24] MEDS: methylPREDNISolone 125MG 2ML VIAL IV ONE (16:28)
[2024-02-24 16:38] LABS: CK-MB VALUE MASS 5.6 NG/ML (<3.6)
[2024-02-24 16:39] LABS: MB/CK RELATIVE INDEX 7.67 (< OR =4)
[2024-02-24] MEDS: ALBUTEROL SULFATE 2.5MG/0.5ML INH NEB SOLN INH ONE (16:46)
[2024-02-24] MEDS: IPRATROPIUM 0.5MG/ALBUTEROL 2.5MG INH SOL UD 3ML (DUONEB) NEB ONE (16:47)
[2024-02-24] MEDS ORDERED: ALIG4CAP PO (17:45)
[2024-02-24] MEDS ORDERED: LISI40TA4 PO (17:45)
[2024-02-24] MEDS ORDERED: SYNT100T PO (17:45)
[2024-02-24] MEDS ORDERED: SENN-186 PO (17:45)
[2024-02-24] MEDS ORDERED: HOME MED LIST COMPLETE! XX SCH (17:45)
[2024-02-24] MEDS ORDERED: ASCO500C3 PO (17:45)
[2024-02-24] MEDS ORDERED: POLY17PO18 PO (17:45)
[2024-02-24] MEDS ORDERED: SYNT112T2 PO (17:45)
[2024-02-24] MEDS ORDERED: ACET-683 PO (17:45)
[2024-02-24] MEDS ORDERED: BUDE0.5S6 INH (17:45)
[2024-02-24 19:40] VITALS: BP 124/67
[2024-02-24] MEDS: PROPRANOLOL 10 MG TAB PO ONE (19:40)
[2024-02-24] MEDS ORDERED: OMEP40CA4 PO (19:42)
[2024-02-24] MEDS ORDERED: PRED10TA2 PO (19:42)
[2024-02-24] MEDS ORDERED: SUCR1TA PO (19:42)
[2024-02-24 20:30] VITALS: BP 124/67; O2SAT 96
[2024-02-24] MEDS: SUCRALFATE SUSP 1GM/10ML UD PO ONE (20:34)
== END 2024-02-24 21:12 | disposition home or self-care (01) ==
LOC: EDBD 14:04 → M ED 14:04
DX: J44.9 Chronic obstructive pulmonary disease, unspecified (principal); K21.9 Gastro-esophageal reflux disease without esophagitis; I25.10 Atherosclerotic heart disease of native coronary artery without angina pectoris; I10 Essential (primary) hypertension; E78.5 Hyperlipidemia, unspecified; Z87.891 Personal history of nicotine dependence; Z79.899 Other long term (current) drug therapy
CPT/HCPCS: 36600; 71045; 71275; 74177; 80048; 80076; 81001; 82550; 82553; 82803; 83605; 83880; 84439; 84443; 84484; 85025; 87040; 87086; 87486; 87581; 87633; 87798; 93005; 93041; 94640; 94760; 96374; 99285; J2919; Q9967

== ENCOUNTER 2024-04-03 11:58 | Inpatient (IN) | payer MEDICARE ==
[~2024-04-03] VITALS: Ht 162.6 cm; Wt 50.9 kg
[~2024-04-03 11:58] MED LIST changes: +ACET-683 PO; +ALIG4CAP PO; +ASCO500C3 PO; +AZIT500T5; +BUDE0.5S6 INH; +FAMO1TAB11; +OMEP40CA4 PO; +POLY17PO18 PO; +SENN-186 PO; +SUCR1TA PO; +SYNT112T2 PO
[2024-04-03 13:08] LABS: BASO % 0.5 % (0.0-1.0); EOS # 0.1 10^3/uL (0.0-0.5); EOS % 1.1 % (0.0-3.0); HEMATOCRIT 32.8 % (36.0-47.0); HEMOGLOBIN 10.8 g/dl (12.0-15.5); LYMPH # 0.9 10^3/uL (1.5-5.0); LYMPH % 10.9 % (24.0-44.0); MEAN CORPUSCULAR HEMOGLOBIN 29.4 pg (27.0-33.0); MEAN CORPUSCULAR HGB CONC 32.9 g/dl (32.0-36.5); MEAN CORPUSCULAR VOLUME 89.4 fl (80.0-96.0); MONO # 0.8 10^3/uL (0.0-0.8); MONO % 9.8 % (2.0-8.0); NEUTROPHILS # 6.4 10^3/uL (1.5-8.5); NEUTROPHILS % 75.9 % (36.0-66.0); PLATELET COUNT, AUTOMATED 330 10^3/uL (150-450); RED BLOOD COUNT 3.67 10^6/uL (4.00-5.40); WHITE BLOOD COUNT 8.5 10^3/uL (4.0-10.0)
[2024-04-03] MEDS: ONDANSETRON 4MG 2ML VIAL IV ONE (13:26)
[2024-04-03] MEDS: MORPHINE 2 MG/ML 1ML VIAL IV ONE (13:26)
[2024-04-03 13:38] LABS: LIPASE 26 U/L (12-53)
[2024-04-03 13:40] LABS: ALKALINE PHOSPHATASE 89 U/L (46-116); ALT/SGPT 15 U/L (7.0-40); AST/SGOT 15 U/L (<34); BILIRUBIN,DIRECT < 0.1 MG/DL (<0.4); BILIRUBIN,TOTAL 0.2 MG/DL (0.3-1.2); BLOOD UREA NITROGEN 10 MG/DL (9-23); CALCIUM LEVEL 9.4 MG/DL (8.3-10.6); CARBON DIOXIDE LEVEL 35 MMOL/L (20-31); CHLORIDE LEVEL 92 MMOL/L (98-107); CREATININE FOR GFR 0.52 MG/DL (0.55-1.30); GLOMERULAR FILTRATION RATE > 60.0 (>32); GLUCOSE, FASTING 116 MG/DL (74-106); POTASSIUM SERUM 4.6 MMOL/L (3.5-5.1); SODIUM LEVEL 127 MMOL/L (136-145); TOTAL PROTEIN 6.3 G/DL (5.7-8.2)
[2024-04-03] MEDS ORDERED: ISOVUE-370 76% 100ML VIAL As Ordered ONE (13:46)
[2024-04-03] MEDS: MORPHINE 4 MG/ML 1ML VIAL IV ONE (14:34)
[2024-04-03] MEDS: SUCRALFATE SUSP 1GM/10ML UD PO ONE (14:59)
[2024-04-03] MEDS: MAALOX 30 ML SUSP *UDC PO ONE (14:59)
[2024-04-03] MEDS: LIDOCAINE VISCOUS 2% SOLN 15ML UDC PO ONE (14:59)
[2024-04-03 15:25] LABS: ERYTHROCYTE SEDIMENTATION RATE 61 mm/hr (0-30)
[2024-04-03] MEDS: METOCLOPRAMIDE INJ 10MG/2ML VIAL IV ONE (15:43)
[2024-04-03 16:30] VITALS: O2SAT 100
[2024-04-03] MEDS: IPRATROPIUM 0.5MG/ALBUTEROL 2.5MG INH SOL UD 3ML (DUONEB) NEB ONE (16:30)
[2024-04-03] MEDS: SUCRALFATE SUSP 1GM/10ML UD PO SCH (18:18)
[2024-04-03] MEDS: PROPRANOLOL 10 MG TAB PO ONE (19:34)
[2024-04-03] MEDS: amLODIPine 5 MG TAB PO ONE (19:34)
[2024-04-03] MEDS: NS 1,000 ML IV SCH (19:34)
[2024-04-03 19:35] VITALS: BP 155/85; TEMP 97.5; O2SAT 98
[2024-04-03] MEDS: ACETAMINOPHEN 325MG/10.15ML UDC PO PRN (19:47)
[2024-04-03] MEDS ORDERED: PROHANCE 279.3MG/ML 5ML VIAL As Ordered ONE (20:22)
[2024-04-03] MEDS ORDERED: KETOROLAC 30 MG/ML 1ML VIAL IV PRN (21:15)
[2024-04-03] MEDS ORDERED: TIOT18CA INH (22:12)
[2024-04-03] MEDS ORDERED: LEVO1TAB38 PO (22:12)
[2024-04-03] MEDS ORDERED: OMEP40CA5 PO (22:12)
[2024-04-03] MEDS ORDERED: HOME MED LIST COMPLETE! XX SCH (22:15)
[2024-04-03] MEDS: RAMELTEON 8 MG TAB (ROZEREM) PO PRN (22:34)
[2024-04-03] MEDS: KETOROLAC 30 MG/ML 1ML VIAL IV PRN (22:35)
[2024-04-04] MEDS: ALBUTEROL SULFATE 2.5MG/0.5ML INH NEB SOLN INH PRN ×2 (03:16→22:21)
[2024-04-04 04:00] VITALS: BP 144/71; TEMP 98.1; O2SAT 99
[2024-04-04] MEDS: LEVOTHYROXINE 100MCG TABLET (0.1MG) PO SCH (05:17)
[2024-04-04 06:31] LABS: HEMATOCRIT 29.3 % (36.0-47.0); HEMOGLOBIN 9.5 g/dl (12.0-15.5); MEAN CORPUSCULAR HEMOGLOBIN 29.5 pg (27.0-33.0); MEAN CORPUSCULAR HGB CONC 32.4 g/dl (32.0-36.5); PLATELET COUNT, AUTOMATED 307 10^3/uL (150-450); RED BLOOD COUNT 3.22 10^6/uL (4.00-5.40); WHITE BLOOD COUNT 8.8 10^3/uL (4.0-10.0)
[2024-04-04 06:49] LABS: ALBUMIN 2.7 G/DL (3.2-5.2); ALKALINE PHOSPHATASE 113 U/L (46-116); ALT/SGPT 25 U/L (7.0-40); AST/SGOT 25 U/L (<34); BILIRUBIN,TOTAL 0.2 MG/DL (0.3-1.2); BLOOD UREA NITROGEN 9 MG/DL (9-23); CALCIUM LEVEL 8.7 MG/DL (8.3-10.6); CARBON DIOXIDE LEVEL 36 MMOL/L (20-31); CHLORIDE LEVEL 91 MMOL/L (98-107); CREATININE FOR GFR 0.61 MG/DL (0.55-1.30); GLOMERULAR FILTRATION RATE > 60.0 (>32); GLUCOSE, FASTING 129 MG/DL (74-106); POTASSIUM SERUM 4.5 MMOL/L (3.5-5.1); SODIUM LEVEL 127 MMOL/L (136-145); TOTAL PROTEIN 5.3 G/DL (5.7-8.2)
[2024-04-04] MEDS: TIOTROPIUM INHALER/CAPSULE (SPIRIVA) INH SCH (07:16)
[2024-04-04] MEDS: SYMBICORT 160/4.5MCG INHALER 6GM INH SCH (07:17)
[2024-04-04] MEDS: PROPRANOLOL 10 MG TAB PO SCH (08:15)
[2024-04-04] MEDS: guaiFENesin ER TABLET 600 MG TAB PO SCH (08:15)
[2024-04-04] MEDS: PANTOPRAZOLE 40MG VIAL IV SCH (08:15)
[2024-04-04] MEDS: OMEPRAZOLE 20MG CAP PO SCH (08:15)
[2024-04-04] MEDS: FAMOTIDINE 20 MG TAB PO SCH (08:15)
[2024-04-04] MEDS: ENOXAPARIN 40MG/0.4ML SYRINGE (J1650 PER 10MG) SC SCH (08:15)
[2024-04-04] MEDS: HYDROMORPHONE HCL 0.5 MG/ 0.5 ML SYRINGE IV PRN (08:16)
[2024-04-04] MEDS: ONDANSETRON 4MG 2ML VIAL IV PRN (08:16)
[2024-04-04] MEDS ORDERED: FLUBLOK(EGGFREE) TRIVAL(24-25) VACCINE PF 0.5ML SYRINGE 18YRS & OLDER IM.IMMUN ONE (09:00)
[2024-04-04] MEDS: NS 1,000 ML IV SCH (11:00)
[2024-04-04 12:00] VITALS: BP 143/75; TEMP 97; O2SAT 97
[2024-04-04] MEDS: KETOROLAC 30 MG/ML 1ML VIAL IV PRN (17:18)
[2024-04-04 19:42] VITALS: BP 149/72; TEMP 98.1; O2SAT 97
[2024-04-04 21:22] LABS: BLOOD UREA NITROGEN 9 MG/DL (9-23); CALCIUM LEVEL 8.3 MG/DL (8.3-10.6); CARBON DIOXIDE LEVEL 34 MMOL/L (20-31); CHLORIDE LEVEL 97 MMOL/L (98-107); CREATININE FOR GFR 0.63 MG/DL (0.55-1.30); GLOMERULAR FILTRATION RATE > 60.0 (>32); GLUCOSE, FASTING 135 MG/DL (74-106); POTASSIUM SERUM 4.4 MMOL/L (3.5-5.1); SODIUM LEVEL 129 MMOL/L (136-145)
[2024-04-04 22:10] VITALS: BP 149/72; TEMP 98.1; O2SAT 97
[2024-04-05] MEDS: BUDESONIDE 0.5 MG/2 ML INHALATION SUSPENSION INH PRN (02:06)
[2024-04-05 03:58] VITALS: BP 174/88; TEMP 97.5; O2SAT 98
[2024-04-05 04:06] VITALS: BP 141/77
[2024-04-05] MEDS: LEVOTHYROXINE 112MCG TABLET (0.112MG) PO SCH (06:13)
[2024-04-05 06:51] LABS: BLOOD UREA NITROGEN 9 MG/DL (9-23); CALCIUM LEVEL 8.2 MG/DL (8.3-10.6); CARBON DIOXIDE LEVEL 32 MMOL/L (20-31); CHLORIDE LEVEL 96 MMOL/L (98-107); CREATININE FOR GFR 0.54 MG/DL (0.55-1.30); GLOMERULAR FILTRATION RATE > 60.0 (>32); GLUCOSE, FASTING 109 MG/DL (74-106); IRON (FE) 18 UG/DL (50-170); PERCENT SATURATION 7.7 % (13.2-45.0); POTASSIUM SERUM 3.8 MMOL/L (3.5-5.1); SODIUM LEVEL 129 MMOL/L (136-145); TOTAL IRON BINDING CAPACITY 233 UG/DL (250-425)
[2024-04-05 07:07] LABS: CA19-9 TUMOR MARKER,CARBOHYDRA 6.8 U/ML (<35.0)
[2024-04-05 07:56] LABS: URIC ACID 1.3 MG/DL (3.1-7.8)
[2024-04-05 08:21] LABS: OSMOLALITY SERUM 268 MOSM/KG (280-301)
[2024-04-05] MEDS: FERRIC CARBOXYMALTOSE INJ 750 MG, VIAL MATE ADAPTER 1 EACH in NS 100 ML IV ONE (08:59)
[2024-04-05] MEDS ORDERED: NS 1,000 ML IV SCH (11:00)
[2024-04-05] MEDS: TOLVAPTAN 7.5 MG HALF-TAB PO ONE (12:14)
[2024-04-05] MEDS: SODIUM CHLORIDE 1 GM TAB PO SCH (12:14)
[2024-04-05] MEDS ORDERED: SIMETHICONE 80MG CHEW TAB PO PRN (12:30)
[2024-04-05] MEDS: MIRALAX *UNIT DOSE* 17GM PACKET PO PRN (13:35)
[2024-04-05] MEDS: SENNA 8.6 MG TAB (SENOKOT) PO PRN (13:35)
[2024-04-05] MEDS: FLUBLOK(EGGFREE) TRIVAL(24-25) VACCINE PF 0.5ML SYRINGE 18YRS & OLDER IM.IMMUN ONE (14:51)
[2024-04-05 16:54] LABS: BLOOD UREA NITROGEN 6 MG/DL (9-23); CALCIUM LEVEL 8.6 MG/DL (8.3-10.6); CARBON DIOXIDE LEVEL 35 MMOL/L (20-31); CHLORIDE LEVEL 100 MMOL/L (98-107); CREATININE FOR GFR 0.55 MG/DL (0.55-1.30); GLOMERULAR FILTRATION RATE > 60.0 (>32); GLUCOSE, FASTING 106 MG/DL (74-106); SODIUM LEVEL 133 MMOL/L (136-145)
[2024-04-05 20:05] VITALS: BP 172/83; TEMP 97.5; O2SAT 98
[2024-04-05 20:08] VITALS: BP 172/83
[2024-04-06 04:30] VITALS: BP 140/68; TEMP 97.7; O2SAT 99
[2024-04-06 07:45] LABS: HEMATOCRIT 26.7 % (36.0-47.0); HEMOGLOBIN 8.6 g/dl (12.0-15.5); MEAN CORPUSCULAR HEMOGLOBIN 29.7 pg (27.0-33.0); MEAN CORPUSCULAR HGB CONC 32.2 g/dl (32.0-36.5); MEAN CORPUSCULAR VOLUME 92.1 fl (80.0-96.0); PLATELET COUNT, AUTOMATED 258 10^3/uL (150-450); WHITE BLOOD COUNT 11.9 10^3/uL (4.0-10.0)
[2024-04-06 08:05] LABS: BLOOD UREA NITROGEN 6 MG/DL (9-23); CALCIUM LEVEL 8.9 MG/DL (8.3-10.6); CARBON DIOXIDE LEVEL 39 MMOL/L (20-31); CHLORIDE LEVEL 99 MMOL/L (98-107); CREATININE FOR GFR 0.56 MG/DL (0.55-1.30); GLOMERULAR FILTRATION RATE > 60.0 (>32); GLUCOSE, FASTING 90 MG/DL (74-106); POTASSIUM SERUM 3.9 MMOL/L (3.5-5.1); SODIUM LEVEL 139 MMOL/L (136-145)
[2024-04-06] MEDS ORDERED: SIME1CAP4 PO (10:51)
[2024-04-06 12:00] VITALS: BP 143/69; TEMP 97.5; O2SAT 100
[2025-04-04] MEDS ORDERED: NS 1,000 ML IV SCH (11:00)
== END 2024-04-06 16:55 | disposition home health service (06) | DRG 392 ==
LOC: M ED 11:58 → M ED INP 11:59 → M MS5PR 18:55 → OBSVTOIN 04-05 13:47
PROVIDERS: ADMIT Internal Medicine; ATTEND Internal Medicine
DX: A08.39 Other viral enteritis (principal); J96.12 Chronic respiratory failure with hypercapnia; E22.2 Syndrome of inappropriate secretion of antidiuretic hormone; E87.3 Alkalosis; J45.909 Unspecified asthma, uncomplicated; K21.9 Gastro-esophageal reflux disease without esophagitis; E03.9 Hypothyroidism, unspecified; E78.5 Hyperlipidemia, unspecified; G25.0 Essential tremor; Z66 Do not resuscitate; Z99.81 Dependence on supplemental oxygen; Z79.2 Long term (current) use of antibiotics; Z79.890 Hormone replacement therapy; Z79.899 Other long term (current) drug therapy; K76.9 Liver disease, unspecified; D50.9 Iron deficiency anemia, unspecified; Z90.49 Acquired absence of other specified parts of digestive tract

== ENCOUNTER 2024-04-11 21:07 | Inpatient (IN) | payer MEDICARE ==
[~2024-04-11] VITALS: Ht 165.1 cm; Wt 50.0 kg
[2024-04-11] MEDS: PROPRANOLOL 10 MG TAB PO SCH (21:00)
[~2024-04-11 21:07] MED LIST changes: +LEVO1TAB38 PO; +OMEP40CA5 PO; +SIME1CAP4 PO; +TIOT18CA INH
[2024-04-11] MEDS: IPRATROPIUM 0.5MG/ALBUTEROL 2.5MG INH SOL UD 3ML (DUONEB) NEB ONE (21:27)
[2024-04-11] MEDS: ALBUTEROL SULFATE 2.5MG/0.5ML INH NEB SOLN INH ONE (21:27)
[2024-04-11 21:39] LABS: BASO # 0.1 10^3/uL (0.0-0.2); BASO % 0.5 % (0.0-1.0); EOS # 0.2 10^3/uL (0.0-0.5); EOS % 1.7 % (0.0-3.0); HEMATOCRIT 30.2 % (36.0-47.0); HEMOGLOBIN 9.5 g/dl (12.0-15.5); LYMPH # 1.3 10^3/uL (1.5-5.0); LYMPH % 12.5 % (24.0-44.0); MEAN CORPUSCULAR HEMOGLOBIN 30.2 pg (27.0-33.0); MEAN CORPUSCULAR HGB CONC 31.5 g/dl (32.0-36.5); MEAN CORPUSCULAR VOLUME 95.9 fl (80.0-96.0); MONO # 1.6 10^3/uL (0.0-0.8); MONO % 15.2 % (2.0-8.0); NEUTROPHILS # 6.9 10^3/uL (1.5-8.5); NEUTROPHILS % 67.7 % (36.0-66.0); PLATELET COUNT, AUTOMATED 324 10^3/uL (150-450); RED BLOOD COUNT 3.15 10^6/uL (4.00-5.40); WHITE BLOOD COUNT 10.2 10^3/uL (4.0-10.0)
[2024-04-11 21:47] LABS: ABG BASE EXCESS 6.2 (-2.0-2.0); ABG HCO3 32.5 MMOL/L (22.0-26.0); ABG O2 SATURATION 98.8 % (95.0-99.0); ABG PARTIAL PRESSURE O2 142.2 mmHg (75.0-100.0); ABG STANDARD HCO3 30.1 MMOL/L. (22.0-26.0); ABG TOTAL CO2 34.2 MMOL/L (23.0-31.0); ABG pH (ARTERIAL) 7.381 UNITS (7.350-7.450)
[2024-04-11 21:59] LABS: CK-MB VALUE MASS 1.2 NG/ML (<3.6)
[2024-04-11 22:02] LABS: ALBUMIN 2.7 G/DL (3.2-5.2); ALKALINE PHOSPHATASE 88 U/L (35-104); ALT/SGPT 13 U/L (7.0-40); AST/SGOT 17 U/L (<34); BILIRUBIN,DIRECT < 0.1 MG/DL (<0.4); BILIRUBIN,TOTAL 0.2 MG/DL (0.3-1.2); BLOOD UREA NITROGEN 10 MG/DL (9-23); CALCIUM LEVEL 8.6 MG/DL (8.3-10.6); CARBON DIOXIDE LEVEL 36 MMOL/L (20-31); CHLORIDE LEVEL 95 MMOL/L (98-107); CREATININE FOR GFR 0.49 MG/DL (0.55-1.30); GLOMERULAR FILTRATION RATE > 60.0 (>32); GLUCOSE, FASTING 103 MG/DL (74-106); POTASSIUM SERUM 3.7 MMOL/L (3.5-5.1); SODIUM LEVEL 131 MMOL/L (136-145); TOTAL PROTEIN 5.6 G/DL (5.7-8.2)
[2024-04-11 22:03] LABS: THYROXINE (T4) 8.9 UG/DL (4.5-10.9)
[2024-04-11 22:08] LABS: PROCALCITONIN 0.06 ng/ml
[2024-04-11 22:10] LABS: CPK CREATINE PHOSPHOKINASE 39 U/L (34-145); MB/CK RELATIVE INDEX 3.07 (< OR =4)
[2024-04-11] MEDS ORDERED: ISOVUE-370 76% 100ML VIAL As Ordered ONE (22:25)
[2024-04-11 22:57] LABS: CK-MB VALUE MASS 1.6 NG/ML (<3.6)
[2024-04-11 22:58] LABS: MB/CK RELATIVE INDEX 4.44 (< OR =4)
[2024-04-12] VITALS (9 sets, daily range): BP systolic 154–180; BP diastolic 84–107; TEMP 97.5–98.4; O2SAT 92–99
[2024-04-12] MEDS ORDERED: SIME1CAP4 PO (00:11)
[2024-04-12] MEDS ORDERED: MUCI600T31 PO (00:11)
[2024-04-12] MEDS ORDERED: MUCI1LIQ3 PO (00:12)
[2024-04-12] MEDS ORDERED: HOME MED LIST COMPLETE! XX SCH (00:15)
[2024-04-12] MEDS ORDERED: LEVALBUTEROL HFA 45MCG/ACT 15GM INHALER INH PRN (01:25)
[2024-04-12] MEDS ORDERED: BUDESONIDE 0.5 MG/2 ML INHALATION SUSPENSION INH PRN (01:45)
[2024-04-12] MEDS ORDERED: ALBUTEROL SULFATE 2.5MG/0.5ML INH NEB SOLN INH PRN (01:45)
[2024-04-12] MEDS: IPRATROPIUM 0.5MG/ALBUTEROL 2.5MG INH SOL UD 3ML (DUONEB) NEB ONE (01:47)
[2024-04-12] MEDS: PANTOPRAZOLE 40MG VIAL IV SCH (02:24)
[2024-04-12] MEDS: methylPREDNISolone 125MG 2ML VIAL IV SCH (02:44)
[2024-04-12] MEDS ORDERED: ONDANSETRON 4MG 2ML VIAL IV PRN (04:00)
[2024-04-12] MEDS: LEVOTHYROXINE 100MCG TABLET (0.1MG) PO SCH (04:58)
[2024-04-12 06:34] LABS: VENOUS BASE EXCESS 7.4 (-2.0-2.0); VENOUS HCO3 33.6 MMOL/L (23.0-27.0); VENOUS O2 SATURATION 99.3 % (60.0-80.0); VENOUS PARTIAL PRESSURE CO2 56.6 mmHg (38.0-50.0); VENOUS PARTIAL PRESSURE O2 160.1 mmHg (30.0-50.0); VENOUS PH 7.392 UNITS (7.330-7.430); VENOUS STANDARD HCO3 31.2 MMOL/L; VENOUS TOTAL CO2 35.4 MMOL/L (24.0-28.0)
[2024-04-12 06:36] LABS: HEMATOCRIT 29.9 % (36.0-47.0); HEMOGLOBIN 9.3 g/dl (12.0-15.5); MEAN CORPUSCULAR HEMOGLOBIN 29.5 pg (27.0-33.0); MEAN CORPUSCULAR HGB CONC 31.1 g/dl (32.0-36.5); MEAN CORPUSCULAR VOLUME 94.9 fl (80.0-96.0); PLATELET COUNT, AUTOMATED 302 10^3/uL (150-450); RED BLOOD COUNT 3.15 10^6/uL (4.00-5.40)
[2024-04-12 07:05] LABS: ALBUMIN 2.6 G/DL (3.2-5.2); ALKALINE PHOSPHATASE 96 U/L (35-104); ALT/SGPT 12 U/L (7.0-40); AST/SGOT 13 U/L (<34); BILIRUBIN,TOTAL 0.3 MG/DL (0.3-1.2); BLOOD UREA NITROGEN 8 MG/DL (9-23); CALCIUM LEVEL 9.3 MG/DL (8.3-10.6); CARBON DIOXIDE LEVEL 40 MMOL/L (20-31); CHLORIDE LEVEL 90 MMOL/L (98-107); CREATININE FOR GFR 0.42 MG/DL (0.55-1.30); GLOMERULAR FILTRATION RATE > 60.0 (>32); GLUCOSE, FASTING 156 MG/DL (74-106); POTASSIUM SERUM 3.9 MMOL/L (3.5-5.1); SODIUM LEVEL 132 MMOL/L (136-145); TOTAL PROTEIN 5.8 G/DL (5.7-8.2)
[2024-04-12 07:12] LABS: PROCALCITONIN 0.04 ng/ml
[2024-04-12] MEDS: TIOTROPIUM INHALER/CAPSULE (SPIRIVA) INH SCH (07:35)
[2024-04-12] MEDS: LEVALBUTEROL HFA 45MCG/ACT 15GM INHALER INH SCH (07:35)
[2024-04-12] MEDS: SYMBICORT 160/4.5MCG INHALER 6GM INH SCH (07:35)
[2024-04-12] MEDS ORDERED: ALBUTEROL SULFATE 2.5MG/0.5ML INH NEB SOLN NEB PRN (08:15)
[2024-04-12] MEDS: FAMOTIDINE 20 MG TAB PO SCH (08:50)
[2024-04-12] MEDS: guaiFENesin ER TABLET 600 MG TAB PO SCH (08:51)
[2024-04-12] MEDS: lisinopriL 40MG TAB PO SCH (08:51)
[2024-04-12] MEDS: ENOXAPARIN 40MG/0.4ML SYRINGE (J1650 PER 10MG) SC SCH (08:52)
[2024-04-12] MEDS ORDERED: **hydrALAZINE** 10 MG TAB PO PRN (09:00)
[2024-04-12] MEDS: IPRATROPIUM 0.5MG/ALBUTEROL 2.5MG INH SOL UD 3ML (DUONEB) NEB SCH (09:08)
[2024-04-12] MEDS: BUDESONIDE 0.5 MG/2 ML INHALATION SUSPENSION NEB PRN (09:08)
[2024-04-12] MEDS: NS 1,000 ML IV SCH (09:25)
[2024-04-12 12:07] LABS: SODIUM,RANDOM URINE 72 MMOL/L
[2024-04-12] MEDS: ACETAMINOPHEN 325 MG TAB PO PRN (15:45)
[2024-04-12] MEDS: amLODIPine 5 MG TAB PO SCH (17:47)
[2024-04-12 19:52] LABS: OSMOLALITY URINE 326 MOSM/KG (50-1400)
[2024-04-12] MEDS: ATORVASTATIN 10 MG TAB PO SCH (20:19)
[2024-04-12] MEDS: SIMETHICONE 80MG CHEW TAB PO SCH (20:19)
[2024-04-13] MEDS: ALBUTEROL SULFATE 2.5MG/0.5ML INH NEB SOLN NEB PRN (01:36)
[2024-04-13 04:00] VITALS: BP 148/82; TEMP 97.7; O2SAT 98
[2024-04-13 06:04] LABS: HEMATOCRIT 29.3 % (36.0-47.0); HEMOGLOBIN 9.2 g/dl (12.0-15.5); MEAN CORPUSCULAR HEMOGLOBIN 29.7 pg (27.0-33.0); MEAN CORPUSCULAR HGB CONC 31.4 g/dl (32.0-36.5); MEAN CORPUSCULAR VOLUME 94.5 fl (80.0-96.0); PLATELET COUNT, AUTOMATED 343 10^3/uL (150-450); WHITE BLOOD COUNT 11.6 10^3/uL (4.0-10.0)
[2024-04-13 06:28] LABS: ALBUMIN 2.5 G/DL (3.2-5.2); ALKALINE PHOSPHATASE 76 U/L (35-104); ALT/SGPT 11 U/L (7.0-40); AST/SGOT 10 U/L (<34); BILIRUBIN,TOTAL 0.2 MG/DL (0.3-1.2); BLOOD UREA NITROGEN 9 MG/DL (9-23); CALCIUM LEVEL 8.9 MG/DL (8.3-10.6); CARBON DIOXIDE LEVEL 38 MMOL/L (20-31); CHLORIDE LEVEL 97 MMOL/L (98-107); CREATININE FOR GFR 0.48 MG/DL (0.55-1.30); GLOMERULAR FILTRATION RATE > 60.0 (>32); GLUCOSE, FASTING 147 MG/DL (74-106); POTASSIUM SERUM 4.4 MMOL/L (3.5-5.1); SODIUM LEVEL 137 MMOL/L (136-145); TOTAL PROTEIN 5.3 G/DL (5.7-8.2)
[2024-04-13] MEDS: predniSONE 20 MG TAB PO SCH (08:25)
[2024-04-13] MEDS: OMEPRAZOLE 20MG CAP PO SCH (08:25)
[2024-04-13 08:28] VITALS: BP 151/80
[2024-04-13 08:37] VITALS: O2SAT 94
[2024-04-13 09:00] VITALS: O2SAT 94
[2024-04-13] MEDS: AZITHROMYCIN 250MG TABLET PO ONE (10:30)
[2024-04-13] MEDS: LACTOBACILLUS ACIDOPHILUS CAP (BACID) PO SCH (10:30)
[2024-04-13] MEDS ORDERED: AZIT-12 PO (10:31)
[2024-04-13] MEDS ORDERED: RISATAB3 PO (10:31)
[2024-04-13] MEDS ORDERED: AMLO1TAB24 PO (10:31)
[2024-04-13] MEDS ORDERED: PRED20TA PO (10:31)
[2024-04-13] MEDS ORDERED: OMEP40CA4 PO (10:31)
[2024-04-13 12:00] VITALS: BP 147/75; TEMP 98.6; O2SAT 97
[2024-04-13] MEDS: SIMETHICONE 80MG CHEW TAB PO SCH (12:45)
[2024-04-13] MEDS ORDERED: OMEPRAZOLE 20MG CAP PO SCH (21:00)
[2024-04-15] MEDS ORDERED: AZITHROMYCIN 250MG TABLET PO SCH (09:00)
== END 2024-04-13 14:15 | disposition home or self-care (01) | DRG 191 ==
LOC: M ED 21:07 → M ED INP 21:08 → OBSVTOIN 04-12 03:11 → M MSPAV 04-12 04:08
PROVIDERS: ADMIT Student in an Organized Health Care Education/Training Program; ATTEND Internal Medicine
DX: J44.1 Chronic obstructive pulmonary disease with (acute) exacerbation (principal); J96.11 Chronic respiratory failure with hypoxia; E87.1 Hypo-osmolality and hyponatremia; Z66 Do not resuscitate; K21.9 Gastro-esophageal reflux disease without esophagitis; E87.8 Other disorders of electrolyte and fluid balance, not elsewhere classified; E03.9 Hypothyroidism, unspecified; R19.7 Diarrhea, unspecified; J43.9 Emphysema, unspecified; R11.0 Nausea; E78.5 Hyperlipidemia, unspecified; I10 Essential (primary) hypertension; G25.0 Essential tremor; Z90.49 Acquired absence of other specified parts of digestive tract; Z87.891 Personal history of nicotine dependence; Z79.890 Hormone replacement therapy; Z79.899 Other long term (current) drug therapy; Z99.81 Dependence on supplemental oxygen

== ENCOUNTER 2024-09-01 16:40 | Inpatient (IN) | payer MEDICARE ==
[~2024-09-01] VITALS: Ht 162.6 cm; Wt 40.8 kg
[~2024-09-01 16:40] MED LIST changes: -ADV500INH INH; +ADVA1AER10 INH; -ALIG4CAP PO; +ALIG4CAP3 PO; +MUCI1LIQ3 PO; +PRED20TA PO; +RISATAB3 PO
[2024-09-01] MEDS: methylPREDNISolone 125MG 2ML VIAL IV ONE (17:25)
[2024-09-01 17:27] LABS: BASO % 0.5 % (0.0-1.0); EOS # 0.2 10^3/uL (0.0-0.5); EOS % 4.1 % (0.0-3.0); HEMATOCRIT 36.3 % (36.0-47.0); HEMOGLOBIN 11.5 g/dl (12.0-15.5); LYMPH # 0.6 10^3/uL (1.5-5.0); LYMPH % 12.5 % (24.0-44.0); MEAN CORPUSCULAR HGB CONC 31.7 g/dl (32.0-36.5); MEAN CORPUSCULAR VOLUME 94.8 fl (80.0-96.0); MONO # 0.6 10^3/uL (0.0-0.8); NEUTROPHILS # 3.1 10^3/uL (1.5-8.5); NEUTROPHILS % 69.7 % (36.0-66.0); PLATELET COUNT, AUTOMATED 192 10^3/uL (150-450); RED BLOOD COUNT 3.83 10^6/uL (4.00-5.40); WHITE BLOOD COUNT 4.4 10^3/uL (4.0-10.0)
[2024-09-01] MEDS: ALBUTEROL SULFATE 2.5MG/0.5ML INH NEB SOLN INH ONE (17:35)
[2024-09-01] MEDS: IPRATROPIUM 0.5MG/ALBUTEROL 2.5MG INH SOL UD 3ML (DUONEB) NEB ONE (17:35)
[2024-09-01 17:37] LABS: ABG BASE EXCESS 14.2 (-2.0-2.0); ABG HCO3 43.2 MMOL/L (22.0-26.0); ABG O2 SATURATION 99.2 % (95.0-99.0); ABG PARTIAL PRESSURE O2 149.8 mmHg (75.0-100.0); ABG TOTAL CO2 45.7 MMOL/L (23.0-31.0); ABG pH (ARTERIAL) 7.347 UNITS (7.350-7.450)
[2024-09-01 17:38] LABS: INR 0.86; PROTHROMBIN TIME 12.1 SECONDS (12.5-14.5)
[2024-09-01 17:38] LABS: ABG PARTIAL PRESSURE CO2 80.6 mmHg (35.0-45.0)
[2024-09-01 17:56] LABS: CPK CREATINE PHOSPHOKINASE 43 U/L (34-145)
[2024-09-01 18:08] LABS: PROCALCITONIN 1.41 ng/ml
[2024-09-01 18:09] LABS: ALBUMIN 3.5 G/DL (3.2-5.2); ALKALINE PHOSPHATASE 95 U/L (35-104); ALT/SGPT 21 U/L (7.0-40); AST/SGOT 19 U/L (<34); BILIRUBIN,DIRECT < 0.1 MG/DL (<0.4); BILIRUBIN,TOTAL 0.3 MG/DL (0.3-1.2); BLOOD UREA NITROGEN 9 MG/DL (9-23); CALCIUM LEVEL 9.2 MG/DL (8.3-10.6); CARBON DIOXIDE LEVEL > 40.0 MMOL/L (20-31); CHLORIDE LEVEL 86 MMOL/L (98-107); CK-MB VALUE MASS 1.8 NG/ML (<3.6); CREATININE FOR GFR 0.39 MG/DL (0.55-1.30); GLOMERULAR FILTRATION RATE > 60.0 (>32); GLUCOSE, FASTING 120 MG/DL (74-106); MB/CK RELATIVE INDEX 4.18 (< OR =4); POTASSIUM SERUM 3.7 MMOL/L (3.5-5.1); SODIUM LEVEL 132 MMOL/L (136-145); THYROID STIMULATING HORMONE 0.271 uIU/ML (0.55-4.78); TOTAL PROTEIN 6.4 G/DL (5.7-8.2)
[2024-09-01] MEDS ORDERED: ISOVUE-370 76% 100ML VIAL As Ordered ONE (18:12)
[2024-09-01] MEDS: cefTRIAXone SOD 2 GM in DEXTROSE 5% (D5W) ADV/MINI-BAG 50 ML IV ONE (18:36)
[2024-09-01 18:57] LABS: CK-MB VALUE MASS 2.2 NG/ML (<3.6)
[2024-09-01 18:59] LABS: MB/CK RELATIVE INDEX 4.68 (< OR =4)
[2024-09-01] MEDS: LIDOCAINE 2% 5ML JELLY UROJET TOP ONE ×2 (19:05→19:23)
[2024-09-01] MEDS: DOXYCYCLINE HYCLATE 100 MG in DEXTROSE 5% (D5W) MINI-BAG PLU 100 ML IV ONE (19:51)
[2024-09-01 20:00] LABS: KETONE, URINE AUTO RFX NEGATIVE (NEGATIVE); LEUKOCYTE ESTERASE UR AUTO RFX NEGATIVE (NEGATIVE); NITRITE, URINE AUTO RFX NEGATIVE (NEGATIVE); RBC, URINE AUTO RFX 2 /HPF (0-3); SQUAM EPITHELIAL CELL UR AURFX 0 /HPF (0-6); WBC, URINE AUTO RFX 0 /HPF (0-3)
[2024-09-01] MEDS: SYMBICORT 160/4.5MCG INHALER 6GM INH SCH (20:00)
[2024-09-01 20:14] LABS: OSMOLALITY SERUM 273 MOSM/KG (280-301)
[2024-09-01] MEDS ORDERED: MOM 30ML SUSPENSION UDC PO PRN (23:20)
[2024-09-01] MEDS ORDERED: LEVALBUTEROL 1.25MG 0.5ML CONCENTRATE NEB INH PRN (23:20)
[2024-09-01] MEDS ORDERED: LEVA0.6330 INH (23:53)
[2024-09-01] MEDS ORDERED: LEVA45AE INH (23:53)
[2024-09-01] MEDS ORDERED: TAMS1CAP17 PO (23:53)
[2024-09-01] MEDS ORDERED: ARFO15VI18 INH (23:53)
[2024-09-01] MEDS ORDERED: IPRA2IN INH (23:53)
[2024-09-01] MEDS ORDERED: BACI1CAP PO (23:53)
[2024-09-01] MEDS ORDERED: OMEP40CA5 PO (23:53)
[2024-09-01] MEDS ORDERED: POLY510P14 PO (23:53)
[2024-09-01] MEDS ORDERED: MUCU1TAB PO (23:55)
[2024-09-01] MEDS ORDERED: NAPR220C14 PO (23:57)
[2024-09-02] VITALS (9 sets, daily range): BP systolic 168–188; BP diastolic 76–90; TEMP 98.4–98.7; O2SAT 96–100
[2024-09-02] MEDS ORDERED: HOME MED LIST COMPLETE! XX SCH
[2024-09-02] MEDS: amLODIPine 5 MG TAB PO ONE
[2024-09-02 00:18] LABS: INR 0.85; PARTIAL THROMBOPLASTIN TIME 26.1 SECONDS (24.8-34.2)
[2024-09-02] MEDS: amLODIPine 5 MG TAB PO SCH (00:28)
[2024-09-02] MEDS: lisinopriL 40MG TAB PO SCH (00:29)
[2024-09-02] MEDS: lisinopriL 40MG TAB PO ONE (00:42)
[2024-09-02] MEDS: methylPREDNISolone 125MG 2ML VIAL IV SCH (00:50)
[2024-09-02] MEDS: IPRATROPIUM 0.5MG/ALBUTEROL 2.5MG INH SOL UD 3ML (DUONEB) NEB SCH (01:29)
[2024-09-02] MEDS: FUROSEMIDE 20MG/2ML VIAL IV ONE (02:08)
[2024-09-02] MEDS: LEVOTHYROXINE 100MCG TABLET (0.1MG) PO SCH (06:08)
[2024-09-02 06:17] LABS: HEMATOCRIT 36.8 % (36.0-47.0); HEMOGLOBIN 11.8 g/dl (12.0-15.5); MEAN CORPUSCULAR HEMOGLOBIN 29.6 pg (27.0-33.0); MEAN CORPUSCULAR HGB CONC 32.1 g/dl (32.0-36.5); MEAN CORPUSCULAR VOLUME 92.2 fl (80.0-96.0); PLATELET COUNT, AUTOMATED 191 10^3/uL (150-450); RED BLOOD COUNT 3.99 10^6/uL (4.00-5.40); WHITE BLOOD COUNT 2.6 10^3/uL (4.0-10.0)
[2024-09-02 06:44] LABS: ALBUMIN 3.1 G/DL (3.2-5.2); ALKALINE PHOSPHATASE 86 U/L (35-104); ALT/SGPT 19 U/L (7.0-40); AST/SGOT 16 U/L (<34); BILIRUBIN,TOTAL 0.2 MG/DL (0.3-1.2); BLOOD UREA NITROGEN 8 MG/DL (9-23); CALCIUM LEVEL 9.3 MG/DL (8.3-10.6); CARBON DIOXIDE LEVEL 40 MMOL/L (20-31); CHLORIDE LEVEL 86 MMOL/L (98-107); CREATININE FOR GFR 0.47 MG/DL (0.55-1.30); GLOMERULAR FILTRATION RATE > 60.0 (>32); GLUCOSE, FASTING 159 MG/DL (74-106); MAGNESIUM LEVEL 1.8 MG/DL (1.8-2.4); POTASSIUM SERUM 3.5 MMOL/L (3.5-5.1); SODIUM LEVEL 134 MMOL/L (136-145); TOTAL PROTEIN 6.1 G/DL (5.7-8.2)
[2024-09-02] MEDS ORDERED: LEVOTHYROXINE 100MCG TABLET (0.1MG) PO SCH (08:50)
[2024-09-02] MEDS ORDERED: BUDESONIDE 0.5 MG/2 ML INHALATION SUSPENSION INH PRN (08:50)
[2024-09-02] MEDS ORDERED: PANTOPRAZOLE 40MG TAB (PROTONIX) PO SCH (09:00)
[2024-09-02] MEDS ORDERED: SIMETHICONE 80MG CHEW TAB PO SCH (09:00)
[2024-09-02] MEDS: DOCUSATE SODIUM 100MG CAPSULE PO SCH (09:45)
[2024-09-02] MEDS: DOXYCYCLINE HYCLATE 100 MG in DEXTROSE 5% (D5W) MINI-BAG PLU 100 ML IV SCH (09:47)
[2024-09-02] MEDS: NS (Normal Saline) 0.9% 1,000 ML IV SCH (09:47)
[2024-09-02] MEDS: ENOXAPARIN 40MG/0.4ML SYRINGE (J1650 PER 10MG) SC SCH (09:47)
[2024-09-02] MEDS ORDERED: PILL CUTTER 1 EACH XX PRN (09:55)
[2024-09-02] MEDS: PROPRANOLOL 10 MG TAB PO SCH (11:20)
[2024-09-02] MEDS: OMEPRAZOLE 20MG CAP PO SCH (11:20)
[2024-09-02] MEDS: SENNA 8.6 MG TAB (SENOKOT) PO SCH (11:21)
[2024-09-02] MEDS: MULTIVITAMINS/MINERALS THERAP 1 TAB PO SCH (11:21)
[2024-09-02] MEDS: SIMETHICONE 80MG CHEW TAB PO SCH (11:21)
[2024-09-02] MEDS: LEVALBUTEROL 1.25MG 0.5ML CONCENTRATE NEB NEB SCH (12:45)
[2024-09-02] MEDS: TIOTROPIUM INHALER/CAPSULE (SPIRIVA) INH SCH (15:07)
[2024-09-02] MEDS ORDERED: cefTRIAXone SOD 1 GM in DEXTROSE 5% (D5W) ADV/MINI-BAG 50 ML IV SCH (18:00)
[2024-09-02] MEDS: GLYCOPYRROLATE INJ 0.2 MG/ML 2 ML VIAL NEB SCH (19:56)
[2024-09-02] MEDS: FORMOTEROL FUMARATE 20 MCG/2 ML INHALATION SOLUTION (PERFOROMIST) INH SCH (19:56)
[2024-09-02] MEDS: ACETAMINOPHEN 325 MG TAB PO PRN (20:00)
[2024-09-02] MEDS ORDERED: DOXYCYCLINE HYCLATE 100MG TABLET PO SCH (21:00)
[2024-09-02] MEDS ORDERED: guaiFENesin ER TABLET 600 MG TAB PO SCH (21:00)
[2024-09-02] MEDS: MIRALAX *UNIT DOSE* 17GM PACKET PO SCH (21:00)
[2024-09-02] MEDS: guaiFENesin ER TABLET 600 MG TAB PO SCH (21:36)
[2024-09-02] MEDS: LevoFLOXacin 750 MG TABLET PO SCH (21:36)
[2024-09-02] MEDS: TAMSULOSIN 0.4 MG CAP PO SCH (21:38)
[2024-09-02] MEDS: CLOTRIMAZOLE 10 MG TROCHE PO SCH (21:38)
[2024-09-03] VITALS (31 sets, daily range): BP systolic 141–181; BP diastolic 65–95; TEMP 97.5–99; O2SAT 92–99
[2024-09-03] MEDS: RAMELTEON 8 MG TAB (ROZEREM) PO STA (04:09)
[2024-09-03] MEDS: IPRATROPIUM 0.5MG/ALBUTEROL 2.5MG INH SOL UD 3ML (DUONEB) NEB PRN (05:31)
[2024-09-03 08:11] LABS: HEMATOCRIT 33.2 % (36.0-47.0); HEMOGLOBIN 10.8 g/dl (12.0-15.5); MEAN CORPUSCULAR HEMOGLOBIN 30.1 pg (27.0-33.0); MEAN CORPUSCULAR HGB CONC 32.5 g/dl (32.0-36.5); MEAN CORPUSCULAR VOLUME 92.5 fl (80.0-96.0); PLATELET COUNT, AUTOMATED 222 10^3/uL (150-450); RED BLOOD COUNT 3.59 10^6/uL (4.00-5.40); WHITE BLOOD COUNT 5.5 10^3/uL (4.0-10.0)
[2024-09-03 08:35] LABS: ALKALINE PHOSPHATASE 72 U/L (35-104); ALT/SGPT 17 U/L (7.0-40); AST/SGOT 13 U/L (<34); BILIRUBIN,TOTAL 0.2 MG/DL (0.3-1.2); BLOOD UREA NITROGEN 13 MG/DL (9-23); CALCIUM LEVEL 8.7 MG/DL (8.3-10.6); CARBON DIOXIDE LEVEL 39 MMOL/L (20-31); CHLORIDE LEVEL 93 MMOL/L (98-107); CREATININE FOR GFR 0.48 MG/DL (0.55-1.30); GLOMERULAR FILTRATION RATE > 60.0 (>32); GLUCOSE, FASTING 135 MG/DL (74-106); SODIUM LEVEL 136 MMOL/L (136-145); TOTAL PROTEIN 5.8 G/DL (5.7-8.2)
[2024-09-03] MEDS: cefTRIAXone SOD 1 GM in DEXTROSE 5% (D5W) ADV/MINI-BAG 50 ML IV SCH (16:59)
[2024-09-03] MEDS: OXAZEPAM 10MG CAP PO ONE (23:24)
[2024-09-04] VITALS (22 sets, daily range): BP systolic 130–194; BP diastolic 62–89; TEMP 97.1–98.5; O2SAT 93–99
[2024-09-04 06:25] LABS: HEMATOCRIT 35.9 % (36.0-47.0); HEMOGLOBIN 11.3 g/dl (12.0-15.5); MEAN CORPUSCULAR HGB CONC 31.5 g/dl (32.0-36.5); MEAN CORPUSCULAR VOLUME 92.3 fl (80.0-96.0); PLATELET COUNT, AUTOMATED 256 10^3/uL (150-450); RED BLOOD COUNT 3.89 10^6/uL (4.00-5.40); WHITE BLOOD COUNT 13.7 10^3/uL (4.0-10.0)
[2024-09-04 06:41] LABS: ALBUMIN 2.8 G/DL (3.2-5.2); ALKALINE PHOSPHATASE 61 U/L (35-104); ALT/SGPT 27 U/L (7.0-40); AST/SGOT 24 U/L (<34); BILIRUBIN,TOTAL 0.2 MG/DL (0.3-1.2); BLOOD UREA NITROGEN 18 MG/DL (9-23); CALCIUM LEVEL 8.3 MG/DL (8.3-10.6); CARBON DIOXIDE LEVEL 38 MMOL/L (20-31); CHLORIDE LEVEL 95 MMOL/L (98-107); GLOMERULAR FILTRATION RATE > 60.0 (>32); GLUCOSE, FASTING 140 MG/DL (74-106); POTASSIUM SERUM 3.6 MMOL/L (3.5-5.1); SODIUM LEVEL 137 MMOL/L (136-145); TOTAL PROTEIN 5.6 G/DL (5.7-8.2)
[2024-09-04] MEDS ORDERED: VARIBAR NECTAR 40% w/v 240ML SUSP BTL As Ordered ONE (11:03)
[2024-09-04] MEDS ORDERED: VARIBAR PUDDING 40% w/v 230ML TUBE As Ordered ONE (11:03)
[2024-09-04] MEDS ORDERED: E-Z-PAQUE 96% w/w SUSP 176GM BTL As Ordered ONE (11:03)
[2024-09-04] MEDS ORDERED: BARIUM SULFATE 700 MG TABLET (E-Z-DISK) As Ordered ONE (11:04)
[2024-09-04] MEDS: FUROSEMIDE 20MG/2ML VIAL IV SCH (17:48)
[2024-09-04] MEDS: OXAZEPAM 10MG CAP PO ONE (21:20)
[2024-09-04] MEDS: methylPREDNISolone 125MG 2ML VIAL IV SCH (21:21)
[2024-09-05] VITALS (16 sets, daily range): BP systolic 120–160; BP diastolic 60–80; TEMP 97.3–98.6; O2SAT 96–100
[2024-09-05 06:23] LABS: HEMATOCRIT 36.7 % (36.0-47.0); HEMOGLOBIN 11.7 g/dl (12.0-15.5); MEAN CORPUSCULAR HEMOGLOBIN 29.7 pg (27.0-33.0); MEAN CORPUSCULAR HGB CONC 31.9 g/dl (32.0-36.5); MEAN CORPUSCULAR VOLUME 93.1 fl (80.0-96.0); PLATELET COUNT, AUTOMATED 207 10^3/uL (150-450); RED BLOOD COUNT 3.94 10^6/uL (4.00-5.40); WHITE BLOOD COUNT 5.6 10^3/uL (4.0-10.0)
[2024-09-05 07:01] LABS: ALBUMIN 2.7 G/DL (3.2-5.2); ALKALINE PHOSPHATASE 59 U/L (35-104); ALT/SGPT 29 U/L (7.0-40); AST/SGOT 22 U/L (<34); BILIRUBIN,TOTAL 0.2 MG/DL (0.3-1.2); BLOOD UREA NITROGEN 17 MG/DL (9-23); CALCIUM LEVEL 8.3 MG/DL (8.3-10.6); CARBON DIOXIDE LEVEL > 40.0 MMOL/L (20-31); CHLORIDE LEVEL 91 MMOL/L (98-107); CREATININE FOR GFR 0.46 MG/DL (0.55-1.30); GLOMERULAR FILTRATION RATE > 60.0 (>32); GLUCOSE, FASTING 120 MG/DL (74-106); POTASSIUM SERUM 3.9 MMOL/L (3.5-5.1); SODIUM LEVEL 135 MMOL/L (136-145); TOTAL PROTEIN 5.5 G/DL (5.7-8.2)
[2024-09-05] MEDS: FUROSEMIDE 40MG/4ML VIAL IV SCH (09:16)
[2024-09-05] MEDS ORDERED: E-Z-HD 98% w/w 340GM SUSP BTL As Ordered ONE (10:58)
[2024-09-05] MEDS ORDERED: E-Z-GAS II EFFERVESCENT PACKET (SODIUM BICARB./CITRIC ACID/SIMETHICONE) As Ordered ONE (10:58)
[2024-09-05] MEDS ORDERED: guaiFENesin SYRUP 200MG 10ML UDC PO PRN (11:50)
[2024-09-05] MEDS: LEVALBUTEROL 1.25MG 0.5ML CONCENTRATE NEB INH SCH (12:00)
[2024-09-05] MEDS: DOCUSATE SOD LIQ 100MG/10ML UDC PO SCH (12:25)
[2024-09-05] MEDS: PANTOPRAZOLE 40MG VIAL IV SCH (12:25)
[2024-09-05] MEDS ORDERED: IPRATROPIUM 0.5MG/ALBUTEROL 2.5MG INH SOL UD 3ML (DUONEB) NEB PRN (13:15)
[2024-09-05] MEDS ORDERED: ALBUTEROL 90 MCG/ACT 8GM HFA INHALER INH PRN (18:00)
[2024-09-05] MEDS: methylPREDNISolone 125MG 2ML VIAL IV SCH (19:21)
[2024-09-05] MEDS: guaiFENesin ER TABLET 600 MG TAB PO ONE (21:02)
[2024-09-05] MEDS: LevoFLOXacin IV 750 MG in IV 1 EA IV SCH (21:04)
[2024-09-05] MEDS: OLANZapine ORAL DISINTEGRATING TAB 5MG PO PRN (21:50)
[2024-09-06] VITALS (18 sets, daily range): BP systolic 125–158; BP diastolic 59–74; TEMP 97.3–98.4; O2SAT 21–100
[2024-09-06] MEDS: OXAZEPAM 15MG CAP PO ONE (04:44)
[2024-09-06] MEDS: ACETAMINOPHEN 325MG/10.15ML UDC GT PRN (04:48)
[2024-09-06 06:05] LABS: VENOUS BASE EXCESS 11.9 (-2.0-2.0); VENOUS HCO3 39.4 MMOL/L (23.0-27.0); VENOUS PARTIAL PRESSURE CO2 66.6 mmHg (38.0-50.0); VENOUS STANDARD HCO3 35.7 MMOL/L; VENOUS TOTAL CO2 41.5 MMOL/L (24.0-28.0)
[2024-09-06 06:16] LABS: HEMATOCRIT 34.5 % (36.0-47.0); HEMOGLOBIN 11.1 g/dl (12.0-15.5); MEAN CORPUSCULAR HEMOGLOBIN 29.8 pg (27.0-33.0); MEAN CORPUSCULAR HGB CONC 32.2 g/dl (32.0-36.5); MEAN CORPUSCULAR VOLUME 92.7 fl (80.0-96.0); PLATELET COUNT, AUTOMATED 204 10^3/uL (150-450); RED BLOOD COUNT 3.72 10^6/uL (4.00-5.40); WHITE BLOOD COUNT 7.3 10^3/uL (4.0-10.0)
[2024-09-06 06:40] LABS: ALBUMIN 2.7 G/DL (3.2-5.2); ALKALINE PHOSPHATASE 59 U/L (35-104); ALT/SGPT 28 U/L (7.0-40); AST/SGOT 22 U/L (<34); BILIRUBIN,TOTAL 0.2 MG/DL (0.3-1.2); BLOOD UREA NITROGEN 18 MG/DL (9-23); CARBON DIOXIDE LEVEL > 40.0 MMOL/L (20-31); CHLORIDE LEVEL 87 MMOL/L (98-107); CREATININE FOR GFR 0.48 MG/DL (0.55-1.30); GLOMERULAR FILTRATION RATE > 60.0 (>32); GLUCOSE, FASTING 116 MG/DL (74-106); POTASSIUM SERUM 3.4 MMOL/L (3.5-5.1); SODIUM LEVEL 135 MMOL/L (136-145); TOTAL PROTEIN 5.2 G/DL (5.7-8.2)
[2024-09-06] MEDS: POTASSIUM CHLORIDE 10% LIQ 20MEQ/15ML UDC PO ONE (10:26)
[2024-09-06 13:25] LABS: PROCALCITONIN 0.13 ng/ml
[2024-09-06] MEDS: guaiFENesin ER TABLET 600 MG TAB PO SCH (14:05)
[2024-09-06 16:59] LABS: ABG HCO3 50.2 MMOL/L (22.0-26.0); ABG O2 SATURATION 98.2 % (95.0-99.0); ABG PARTIAL PRESSURE O2 116.4 mmHg (75.0-100.0); ABG STANDARD HCO3 44.4 MMOL/L. (22.0-26.0); ABG TOTAL CO2 53.1 MMOL/L (23.0-31.0)
[2024-09-06 17:08] LABS: ABG PARTIAL PRESSURE CO2 93.1 mmHg (35.0-45.0)
[2024-09-06] MEDS: methylPREDNISolone 40MG 1ML VIAL IV SCH (17:27)
[2024-09-06] MEDS: traZODone 25MG PER 1/2 TABLET PO SCH (21:00)
[2024-09-07] VITALS (18 sets, daily range): BP systolic 115–145; BP diastolic 56–70; TEMP 97.7–98.6; O2SAT 94–100
[2024-09-07] MEDS: BUDESONIDE 0.5 MG/2 ML INHALATION SUSPENSION NEB SCH (08:00)
[2024-09-07 08:26] LABS: VENOUS BASE EXCESS 15.6 (-2.0-2.0); VENOUS HCO3 43.5 MMOL/L (23.0-27.0); VENOUS O2 SATURATION 99.2 % (60.0-80.0); VENOUS PARTIAL PRESSURE CO2 70.9 mmHg (38.0-50.0); VENOUS PARTIAL PRESSURE O2 211.1 mmHg (30.0-50.0); VENOUS PH 7.406 UNITS (7.330-7.430); VENOUS STANDARD HCO3 39.5 MMOL/L; VENOUS TOTAL CO2 45.7 MMOL/L (24.0-28.0)
[2024-09-07 08:36] LABS: BASO % 0.2 % (0.0-1.0); EOS % 0.1 % (0.0-3.0); HEMATOCRIT 36.8 % (36.0-47.0); HEMOGLOBIN 11.8 g/dl (12.0-15.5); LYMPH # 1.1 10^3/uL (1.5-5.0); LYMPH % 11.4 % (24.0-44.0); MEAN CORPUSCULAR HGB CONC 32.1 g/dl (32.0-36.5); MEAN CORPUSCULAR VOLUME 93.6 fl (80.0-96.0); MONO % 11.1 % (2.0-8.0); PLATELET COUNT, AUTOMATED 221 10^3/uL (150-450); RED BLOOD COUNT 3.93 10^6/uL (4.00-5.40); WHITE BLOOD COUNT 9.2 10^3/uL (4.0-10.0)
[2024-09-07 09:07] LABS: BLOOD UREA NITROGEN 16 MG/DL (9-23); CALCIUM LEVEL 8.2 MG/DL (8.3-10.6); CARBON DIOXIDE LEVEL > 40.0 MMOL/L (20-31); CHLORIDE LEVEL 93 MMOL/L (98-107); CREATININE FOR GFR 0.46 MG/DL (0.55-1.30); GLOMERULAR FILTRATION RATE > 60.0 (>32); GLUCOSE, FASTING 102 MG/DL (74-106); POTASSIUM SERUM 4.1 MMOL/L (3.5-5.1); SODIUM LEVEL 137 MMOL/L (136-145)
[2024-09-08] VITALS (22 sets, daily range): BP systolic 105–136; BP diastolic 51–63; TEMP 97.1–98.3; O2SAT 90–100
[2024-09-08 07:35] LABS: BASO % 0.1 % (0.0-1.0); EOS # 0.1 10^3/uL (0.0-0.5); EOS % 1.4 % (0.0-3.0); HEMATOCRIT 36.3 % (36.0-47.0); LYMPH # 1.7 10^3/uL (1.5-5.0); LYMPH % 21.5 % (24.0-44.0); MEAN CORPUSCULAR HEMOGLOBIN 29.3 pg (27.0-33.0); MEAN CORPUSCULAR HGB CONC 30.3 g/dl (32.0-36.5); MEAN CORPUSCULAR VOLUME 96.8 fl (80.0-96.0); MONO # 1.2 10^3/uL (0.0-0.8); MONO % 14.8 % (2.0-8.0); NEUTROPHILS # 4.8 10^3/uL (1.5-8.5); NEUTROPHILS % 61.2 % (36.0-66.0); PLATELET COUNT, AUTOMATED 209 10^3/uL (150-450); RED BLOOD COUNT 3.75 10^6/uL (4.00-5.40); WHITE BLOOD COUNT 7.8 10^3/uL (4.0-10.0)
[2024-09-08 08:02] LABS: BLOOD UREA NITROGEN 20 MG/DL (9-23); CALCIUM LEVEL 8.1 MG/DL (8.3-10.6); CARBON DIOXIDE LEVEL > 40.0 MMOL/L (20-31); CHLORIDE LEVEL 91 MMOL/L (98-107); CREATININE FOR GFR 0.61 MG/DL (0.55-1.30); GLOMERULAR FILTRATION RATE > 60.0 (>32); GLUCOSE, FASTING 105 MG/DL (74-106); POTASSIUM SERUM 3.9 MMOL/L (3.5-5.1); SODIUM LEVEL 138 MMOL/L (136-145)
[2024-09-08 09:47] LABS: ABG BASE EXCESS 11.3 (-2.0-2.0); ABG HCO3 39.5 MMOL/L (22.0-26.0); ABG O2 SATURATION 94.1 % (95.0-99.0); ABG PARTIAL PRESSURE O2 71.1 mmHg (75.0-100.0); ABG TOTAL CO2 41.7 MMOL/L (23.0-31.0); ABG pH (ARTERIAL) 7.357 UNITS (7.350-7.450)
[2024-09-08] MEDS: PANTOPRAZOLE 40MG TAB (PROTONIX) PO SCH (21:14)
[2024-09-08] MEDS: MORPHINE 10MG/0.5ML ORAL CONCENTRATE SOLUTION U/D SL PRN (21:17)
[2024-09-09] VITALS (12 sets, daily range): BP systolic 103–124; BP diastolic 55–67; TEMP 97.3–99.2; O2SAT 91–98
[2024-09-09 04:53] LABS: BASO % 0.1 % (0.0-1.0); EOS # 0.2 10^3/uL (0.0-0.5); EOS % 2.2 % (0.0-3.0); HEMATOCRIT 34.8 % (36.0-47.0); HEMOGLOBIN 10.9 g/dl (12.0-15.5); LYMPH # 1.7 10^3/uL (1.5-5.0); MEAN CORPUSCULAR HGB CONC 31.3 g/dl (32.0-36.5); MEAN CORPUSCULAR VOLUME 95.9 fl (80.0-96.0); MONO # 1.5 10^3/uL (0.0-0.8); MONO % 14.4 % (2.0-8.0); NEUTROPHILS # 6.5 10^3/uL (1.5-8.5); PLATELET COUNT, AUTOMATED 206 10^3/uL (150-450); RED BLOOD COUNT 3.63 10^6/uL (4.00-5.40); WHITE BLOOD COUNT 10.1 10^3/uL (4.0-10.0)
[2024-09-09 05:51] LABS: BLOOD UREA NITROGEN 19 MG/DL (9-23); CALCIUM LEVEL 8.4 MG/DL (8.3-10.6); CARBON DIOXIDE LEVEL > 40.0 MMOL/L (20-31); CHLORIDE LEVEL 94 MMOL/L (98-107); CREATININE FOR GFR 0.52 MG/DL (0.55-1.30); GLOMERULAR FILTRATION RATE > 60.0 (>32); GLUCOSE, FASTING 106 MG/DL (74-106); POTASSIUM SERUM 3.9 MMOL/L (3.5-5.1); SODIUM LEVEL 139 MMOL/L (136-145)
[2024-09-09] MEDS: predniSONE 20 MG TAB PO SCH (09:39)
[2024-09-10 03:45] LABS: VENOUS BASE EXCESS 12.4 (-2.0-2.0); VENOUS HCO3 39.7 MMOL/L (23.0-27.0); VENOUS PARTIAL PRESSURE CO2 67.2 mmHg (38.0-50.0); VENOUS PARTIAL PRESSURE O2 196.8 mmHg (30.0-50.0); VENOUS PH 7.389 UNITS (7.330-7.430); VENOUS STANDARD HCO3 36.2 MMOL/L; VENOUS TOTAL CO2 41.7 MMOL/L (24.0-28.0)
[2024-09-10 04:04] LABS: BASO % 0.1 % (0.0-1.0); EOS % 0.3 % (0.0-3.0); HEMATOCRIT 31.9 % (36.0-47.0); HEMOGLOBIN 9.8 g/dl (12.0-15.5); LYMPH % 12.8 % (24.0-44.0); MEAN CORPUSCULAR HEMOGLOBIN 29.8 pg (27.0-33.0); MEAN CORPUSCULAR HGB CONC 30.7 g/dl (32.0-36.5); MONO # 0.9 10^3/uL (0.0-0.8); MONO % 11.2 % (2.0-8.0); NEUTROPHILS # 5.7 10^3/uL (1.5-8.5); NEUTROPHILS % 73.9 % (36.0-66.0); PLATELET COUNT, AUTOMATED 214 10^3/uL (150-450); RED BLOOD COUNT 3.29 10^6/uL (4.00-5.40); WHITE BLOOD COUNT 7.8 10^3/uL (4.0-10.0)
[2024-09-10 04:07] VITALS: BP 110/55; TEMP 98.9; O2SAT 96
[2024-09-10 04:26] LABS: BLOOD UREA NITROGEN 18 MG/DL (9-23); CALCIUM LEVEL 8.3 MG/DL (8.3-10.6); CARBON DIOXIDE LEVEL > 40.0 MMOL/L (20-31); CHLORIDE LEVEL 96 MMOL/L (98-107); CREATININE FOR GFR 0.46 MG/DL (0.55-1.30); GLOMERULAR FILTRATION RATE > 60.0 (>32); GLUCOSE, FASTING 133 MG/DL (74-106); POTASSIUM SERUM 4.2 MMOL/L (3.5-5.1); SODIUM LEVEL 140 MMOL/L (136-145)
[2024-09-10 08:00] VITALS: BP 142/61; TEMP 98.1; O2SAT 98
[2024-09-10 09:33] VITALS: BP 130/60
[2024-09-10 19:42] VITALS: BP 117/58; TEMP 98.9; O2SAT 97
[2024-09-11 04:30] VITALS: BP 134/62; TEMP 98.5; O2SAT 94
[2024-09-11 06:36] LABS: BASO % 0.3 % (0.0-1.0); EOS # 0.1 10^3/uL (0.0-0.5); EOS % 1.4 % (0.0-3.0); HEMATOCRIT 33.5 % (36.0-47.0); HEMOGLOBIN 10.4 g/dl (12.0-15.5); LYMPH # 1.6 10^3/uL (1.5-5.0); LYMPH % 16.4 % (24.0-44.0); MEAN CORPUSCULAR HEMOGLOBIN 30.1 pg (27.0-33.0); MEAN CORPUSCULAR VOLUME 96.8 fl (80.0-96.0); MONO # 1.2 10^3/uL (0.0-0.8); MONO % 11.7 % (2.0-8.0); NEUTROPHILS # 6.7 10^3/uL (1.5-8.5); PLATELET COUNT, AUTOMATED 256 10^3/uL (150-450); RED BLOOD COUNT 3.46 10^6/uL (4.00-5.40)
[2024-09-11 06:48] LABS: BLOOD UREA NITROGEN 15 MG/DL (9-23); CALCIUM LEVEL 8.7 MG/DL (8.3-10.6); CARBON DIOXIDE LEVEL > 40.0 MMOL/L (20-31); CHLORIDE LEVEL 97 MMOL/L (98-107); CREATININE FOR GFR 0.49 MG/DL (0.55-1.30); GLOMERULAR FILTRATION RATE > 60.0 (>32); GLUCOSE, FASTING 94 MG/DL (74-106); POTASSIUM SERUM 4.3 MMOL/L (3.5-5.1); SODIUM LEVEL 140 MMOL/L (136-145)
[2024-09-11 07:29] VITALS: BP 130/61; TEMP 98.3; O2SAT 94
[2024-09-11 12:25] VITALS: BP 146/66; TEMP 98; O2SAT 100
[2024-09-11 16:13] VITALS: BP 129/60; TEMP 98.1; O2SAT 100
[2024-09-11 18:40] VITALS: BP 116/64; TEMP 97.3; O2SAT 97
[2024-09-12 03:47] VITALS: BP 124/54; TEMP 97.3; O2SAT 95
[2024-09-12 05:30] LABS: BASO # 0.1 10^3/uL (0.0-0.2); BASO % 0.4 % (0.0-1.0); EOS # 0.1 10^3/uL (0.0-0.5); EOS % 0.7 % (0.0-3.0); HEMATOCRIT 34.2 % (36.0-47.0); HEMOGLOBIN 10.6 g/dl (12.0-15.5); LYMPH # 1.9 10^3/uL (1.5-5.0); LYMPH % 15.1 % (24.0-44.0); MEAN CORPUSCULAR HEMOGLOBIN 29.3 pg (27.0-33.0); MEAN CORPUSCULAR VOLUME 94.5 fl (80.0-96.0); MONO # 1.2 10^3/uL (0.0-0.8); MONO % 9.9 % (2.0-8.0); NEUTROPHILS # 8.6 10^3/uL (1.5-8.5); NEUTROPHILS % 69.5 % (36.0-66.0); PLATELET COUNT, AUTOMATED 261 10^3/uL (150-450); RED BLOOD COUNT 3.62 10^6/uL (4.00-5.40); WHITE BLOOD COUNT 12.4 10^3/uL (4.0-10.0)
[2024-09-12 05:49] LABS: BLOOD UREA NITROGEN 15 MG/DL (9-23); CALCIUM LEVEL 8.4 MG/DL (8.3-10.6); CARBON DIOXIDE LEVEL 38 MMOL/L (20-31); CHLORIDE LEVEL 96 MMOL/L (98-107); CREATININE FOR GFR 0.48 MG/DL (0.55-1.30); GLOMERULAR FILTRATION RATE > 60.0 (>32); GLUCOSE, FASTING 84 MG/DL (74-106); POTASSIUM SERUM 4.3 MMOL/L (3.5-5.1); SODIUM LEVEL 137 MMOL/L (136-145)
[2024-09-12] MEDS: predniSONE 10MG TAB PO SCH (09:07)
[2024-09-12] MEDS: SIMETHICONE 80MG CHEW TAB PO PRN (09:41)
[2024-09-12] MEDS: MAALOX 30 ML SUSP *UDC PO PRN (20:17)
[2024-09-13 05:07] VITALS: BP 112/63; TEMP 97.2; O2SAT 96
[2024-09-13 05:14] LABS: BASO % 0.2 % (0.0-1.0); EOS # 0.1 10^3/uL (0.0-0.5); EOS % 0.3 % (0.0-3.0); HEMATOCRIT 32.8 % (36.0-47.0); HEMOGLOBIN 10.3 g/dl (12.0-15.5); LYMPH # 1.8 10^3/uL (1.5-5.0); LYMPH % 10.8 % (24.0-44.0); MEAN CORPUSCULAR HEMOGLOBIN 29.7 pg (27.0-33.0); MEAN CORPUSCULAR HGB CONC 31.4 g/dl (32.0-36.5); MEAN CORPUSCULAR VOLUME 94.5 fl (80.0-96.0); MONO # 1.8 10^3/uL (0.0-0.8); NEUTROPHILS # 12.1 10^3/uL (1.5-8.5); NEUTROPHILS % 74.1 % (36.0-66.0); PLATELET COUNT, AUTOMATED 282 10^3/uL (150-450); RED BLOOD COUNT 3.47 10^6/uL (4.00-5.40); WHITE BLOOD COUNT 16.3 10^3/uL (4.0-10.0)
[2024-09-13 05:38] LABS: BLOOD UREA NITROGEN 14 MG/DL (9-23); CALCIUM LEVEL 8.2 MG/DL (8.3-10.6); CARBON DIOXIDE LEVEL 39 MMOL/L (20-31); CHLORIDE LEVEL 95 MMOL/L (98-107); CREATININE FOR GFR 0.51 MG/DL (0.55-1.30); GLOMERULAR FILTRATION RATE > 60.0 (>32); GLUCOSE, FASTING 86 MG/DL (74-106); POTASSIUM SERUM 4.3 MMOL/L (3.5-5.1); SODIUM LEVEL 136 MMOL/L (136-145)
[2024-09-13] MEDS ORDERED: MORP1SOL SL (08:05)
[2024-09-13] MEDS ORDERED: LEVO1TAB40 PO (08:05)
[2024-09-13] MEDS ORDERED: PRED10TA2 PO (08:05)
[2024-09-13] MEDS: CEPACOL LOZENGE PO PRN (08:53)
[2024-09-13 08:54] VITALS: BP 124/65
== END 2024-09-13 11:34 | DRG 193 ==
LOC: M ED 16:40 → EDBD 16:40 → M ED INP 23:16 → M PCU 09-02 17:12 → M MSPAV 09-11 18:37
PROVIDERS: ADMIT Student in an Organized Health Care Education/Training Program; ATTEND Student in an Organized Health Care Education/Training Program
PROC: B246ZZZ Ultrasonography of Right and Left Heart (ICD-10-PCS; principal; 2024-09-02)
DX: J15.9 Unspecified bacterial pneumonia (principal); J96.21 Acute and chronic respiratory failure with hypoxia; J96.22 Acute and chronic respiratory failure with hypercapnia; E43 Unspecified severe protein-calorie malnutrition; J44.1 Chronic obstructive pulmonary disease with (acute) exacerbation; B37.0 Candidal stomatitis; J44.0 Chronic obstructive pulmonary disease with (acute) lower respiratory infection; Z68.1 Body mass index [BMI] 19.9 or less, adult; R33.9 Retention of urine, unspecified; K21.9 Gastro-esophageal reflux disease without esophagitis; E03.9 Hypothyroidism, unspecified; E78.5 Hyperlipidemia, unspecified; R13.10 Dysphagia, unspecified; I10 Essential (primary) hypertension; F41.9 Anxiety disorder, unspecified; I70.0 Atherosclerosis of aorta; I16.0 Hypertensive urgency; G25.0 Essential tremor; I25.10 Atherosclerotic heart disease of native coronary artery without angina pectoris; G47.00 Insomnia, unspecified; R22.42 Localized swelling, mass and lump, left lower limb; B97.29 Other coronavirus as the cause of diseases classified elsewhere; Z66 Do not resuscitate; Z90.49 Acquired absence of other specified parts of digestive tract; Z87.891 Personal history of nicotine dependence; Z79.890 Hormone replacement therapy; Z79.899 Other long term (current) drug therapy; Z99.81 Dependence on supplemental oxygen

== ENCOUNTER 2024-12-28 16:12 | Emergency (ER) | payer MEDICARE ==
[~2024-12-28] VITALS: Ht 162.6 cm; Wt 45.5 kg
[~2024-12-28 16:12] MED LIST changes: +ARFO15VI18 INH; +BACI1CAP PO; +IPRA2IN INH; +LEVA0.6330 INH; +LEVA45AE INH; +LEVO1TAB40 PO; +LIDO1ADH93 TD; -LIDO5DIS41 TD; +LISI40TA10 PO; -LISI40TA4 PO; +MORP1SOL SL; +MUCU1TAB PO; +NAPR220C14 PO; +POLY510P14 PO; +TAMS1CAP17 PO
[2024-12-28] MEDS ORDERED: CEPH500C (16:23)
[2024-12-28] MEDS: LIDOCAINE 2% 5 ML JELLY UROJET TOP ONE (17:33)
[2024-12-28 17:55] LABS: KETONE, URINE AUTO RFX NEGATIVE (NEGATIVE); LEUKOCYTE ESTERASE UR AUTO RFX NEGATIVE (NEGATIVE); RBC, URINE AUTO RFX 2 /HPF (0-3); SQUAM EPITHELIAL CELL UR AURFX 0 /HPF (0-6); WBC, URINE AUTO RFX 2 /HPF (0-3)
[2024-12-28 18:21] LABS: NITRITE, URINE AUTO RFX POSITIVE (NEGATIVE)
[2024-12-28 19:00] VITALS: BP 138/72; TEMP 97.6
[2024-12-28] MEDS: LEVALBUTEROL 1.25 MG 0.5ML CONCENTRATE NEB INH ONE (19:07)
[2024-12-28 19:15] VITALS: O2SAT 98
== END 2024-12-28 19:34 | disposition home or self-care (01) ==
LOC: EDBD 16:12 → M ED 16:12
DX: R33.9 Retention of urine, unspecified (principal); K21.9 Gastro-esophageal reflux disease without esophagitis; E03.9 Hypothyroidism, unspecified; E78.5 Hyperlipidemia, unspecified; I25.10 Atherosclerotic heart disease of native coronary artery without angina pectoris; Z79.899 Other long term (current) drug therapy

== ENCOUNTER 2025-01-23 19:40 | Observation (INO) | payer MEDICARE ==
[~2025-01-23] VITALS: Ht 162.6 cm; Wt 44.6 kg
[~2025-01-23 19:40] MED LIST changes: +CEPH500C
[2025-01-23 20:42] LABS: BASO # 0.0 10^3/uL (0.0-0.2); BASO % 0.5 % (0.0-1.0); EOS # 0.2 10^3/uL (0.0-0.5); EOS % 4.0 % (0.0-3.0); LYMPH # 0.7 10^3/uL (1.5-5.0); LYMPH % 11.7 % (24.0-44.0); MONO # 0.5 10^3/uL (0.0-0.8); MONO % 7.9 % (2.0-8.0); NEUTROPHILS # 4.6 10^3/uL (1.5-8.5); NEUTROPHILS % 75.6 % (36.0-66.0); PLATELET COUNT, AUTOMATED 200 10^3/uL (150-450)
[2025-01-23 21:06] LABS: ALT/SGPT 14 U/L (7.0-40); AST/SGOT 23 U/L (<34); CALCIUM LEVEL 9.1 MG/DL (8.3-10.6); CARBON DIOXIDE LEVEL 38 MMOL/L (20-31); CHLORIDE LEVEL 86 MMOL/L (98-107); CREATININE FOR GFR 0.52 MG/DL (0.55-1.30); GLOMERULAR FILTRATION RATE > 90.0 (>32); POTASSIUM SERUM 5.1 MMOL/L (3.5-5.1); SODIUM LEVEL 130 MMOL/L (136-145)
[2025-01-23] MEDS: IPRATROPIUM 0.5 MG/ALBUTEROL 2.5 MG INH SOL UD 3 ML NEB ONE (21:07)
[2025-01-23 22:48] LABS: CK-MB VALUE MASS 3.9 NG/ML (<3.6)
[2025-01-23 22:50] LABS: CPK CREATINE PHOSPHOKINASE 111 U/L (34-145); MB/CK RELATIVE INDEX 3.51 (< OR =4)
[2025-01-24] VITALS (7 sets, daily range): BP systolic 147–158; BP diastolic 69–77; TEMP 97.9–98.2; O2SAT 92–98
[2025-01-24 00:35] LABS: CK-MB VALUE MASS 3.6 NG/ML (<3.6)
[2025-01-24 00:38] LABS: CPK CREATINE PHOSPHOKINASE 99.0 U/L (34-145); MB/CK RELATIVE INDEX 3.63 (< OR =4)
[2025-01-24 02:36] LABS: KETONE, URINE AUTO RFX 1+ mg/dL (NEGATIVE); MUCUS, URINE RFX SMALL (NEGATIVE); NITRITE, URINE AUTO RFX NEGATIVE (NEGATIVE); RBC, URINE AUTO RFX 16 /HPF (0-3); SQUAM EPITHELIAL CELL UR AURFX 1 /HPF (0-6)
[2025-01-24] MEDS: IPRATROPIUM 0.5 MG/ALBUTEROL 2.5 MG INH SOL UD 3 ML NEB SCH (02:36)
[2025-01-24 02:38] LABS: LEUKOCYTE ESTERASE UR AUTO RFX 3+ (NEGATIVE); WBC, URINE AUTO RFX 172 /HPF (0-3)
[2025-01-24] MEDS: AZITHROMYCIN 250 MG TABLET PO SCH (02:46)
[2025-01-24] MEDS: predniSONE 20 MG TAB PO SCH (02:46)
[2025-01-24] MEDS: ACETAMINOPHEN 325 MG TAB PO PRN (04:27)
[2025-01-24] MEDS: LEVOTHYROXINE 100 MCG TABLET (0.1 MG) PO SCH (04:28)
[2025-01-24] MEDS: TIOTROPIUM BROM 2.5MCG/ACTUATION 4GM INH INH SCH (08:00)
[2025-01-24] MEDS: cefTRIAXone SOD 1 GM in DEXTROSE 5% (D5W) ADV/MINI-BAG 50 ML IV SCH (09:07)
[2025-01-24] MEDS ORDERED: LISI20TA33 PO (09:13)
[2025-01-24] MEDS ORDERED: CIPR7.5D2 AS (09:17)
[2025-01-24] MEDS ORDERED: COLA100C5 PO (09:20)
[2025-01-24] MEDS ORDERED: HOME MED LIST COMPLETE! XX SCH (09:25)
[2025-01-24] MEDS ORDERED: PILL CUTTER 1 EACH XX PRN (09:55)
[2025-01-24] MEDS: ENOXAPARIN 30 MG/0.3 ML SYRINGE (J1650 PER 10MG) SC SCH (10:57)
[2025-01-24] MEDS: SIMETHICONE 80MG CHEW TAB PO SCH (10:57)
[2025-01-24] MEDS: OMEPRAZOLE 20MG CAP PO SCH (10:58)
[2025-01-24] MEDS: PROPRANOLOL 10 MG TAB PO SCH (11:08)
[2025-01-24] MEDS: BUDESONIDE 0.5 MG/2 ML INHALATION SUSPENSION NEB SCH (11:22)
[2025-01-24] MEDS: CIPRODEX OTIC SUSP 7.5 ML AS SCH (13:32)
[2025-01-24] MEDS ORDERED: SODI1TAB12 PO (16:41)
[2025-01-24] MEDS: guaiFENesin SYRUP 200 MG/10 ML UDC PO ONE (16:49)
[2025-01-24] MEDS: GLYCOPYRROLATE INJ 0.2 MG/ML 2 ML VIAL NEB SCH (19:16)
[2025-01-24] MEDS: SODIUM CHLORIDE 1 GM TAB PO SCH (21:15)
[2025-01-24] MEDS: MIRALAX *UNIT DOSE* 17 GM PACKET PO SCH (21:15)
[2025-01-24] MEDS: TAMSULOSIN 0.4 MG CAP PO SCH (21:15)
[2025-01-24] MEDS: guaiFENesin SYRUP 200 MG/10 ML UDC PO PRN (23:06)
[2025-01-25 07:18] VITALS: O2SAT 99
[2025-01-25 07:28] VITALS: BP 124/57; TEMP 97.7; O2SAT 99
[2025-01-25 07:36] LABS: PLATELET COUNT, AUTOMATED 239 10^3/uL (150-450)
[2025-01-25 07:59] LABS: ALT/SGPT 14 U/L (7.0-40); AST/SGOT 16 U/L (<34); CALCIUM LEVEL 8.7 MG/DL (8.3-10.6); CARBON DIOXIDE LEVEL 39 MMOL/L (20-31); CHLORIDE LEVEL 90 MMOL/L (98-107); CREATININE FOR GFR 0.51 MG/DL (0.55-1.30); GLOMERULAR FILTRATION RATE > 90.0 (>32); POTASSIUM SERUM 5.2 MMOL/L (3.5-5.1); SODIUM LEVEL 133 MMOL/L (136-145)
[2025-01-25] MEDS ORDERED: CEPACOL LOZENGE PO PRN (10:40)
[2025-01-25 14:00] VITALS: BP 137/75; TEMP 97.9; O2SAT 95
[2025-01-25] MEDS: SODIUM CHLORIDE 1 GM TAB PO SCH (18:47)
[2025-01-25 21:15] VITALS: BP 135/65; TEMP 97.7; O2SAT 98
[2025-01-26 05:45] VITALS: BP 156/80; TEMP 97.7; O2SAT 98
[2025-01-26] MEDS: LEVALBUTEROL 0.63 MG/3 ML INH PRN (06:04)
[2025-01-26 07:21] LABS: PLATELET COUNT, AUTOMATED 237 10^3/uL (150-450)
[2025-01-26 07:52] LABS: CALCIUM LEVEL 8.2 MG/DL (8.3-10.6); CARBON DIOXIDE LEVEL > 40.0 MMOL/L (20-31); CHLORIDE LEVEL 88 MMOL/L (98-107); CREATININE FOR GFR 0.51 MG/DL (0.55-1.30); GLOMERULAR FILTRATION RATE > 90.0 (>32); MAGNESIUM LEVEL 1.8 MG/DL (1.8-2.4); POTASSIUM SERUM 5.6 MMOL/L (3.5-5.1); SODIUM LEVEL 132 MMOL/L (136-145)
[2025-01-26] MEDS ORDERED: IPRATROPIUM 0.5 MG/ALBUTEROL 2.5 MG INH SOL UD 3 ML NEB PRN (11:45)
[2025-01-26] MEDS: IPRATROPIUM 0.5 MG/ALBUTEROL 2.5 MG INH SOL UD 3 ML NEB SCH (12:32)
[2025-01-26 14:00] VITALS: BP 148/75; TEMP 97.9; O2SAT 91
[2025-01-26 14:11] LABS: CALCIUM LEVEL 8.5 MG/DL (8.3-10.6); CARBON DIOXIDE LEVEL 38 MMOL/L (20-31); CHLORIDE LEVEL 86 MMOL/L (98-107); CREATININE FOR GFR 0.47 MG/DL (0.55-1.30); GLOMERULAR FILTRATION RATE > 90.0 (>32); POTASSIUM SERUM 5.0 MMOL/L (3.5-5.1); SODIUM LEVEL 129 MMOL/L (136-145)
[2025-01-26 20:00] VITALS: BP 166/75; TEMP 97.7; O2SAT 98
[2025-01-27] MEDS: RAMELTEON 8 MG TAB PO PRN (01:38)
[2025-01-27 06:00] VITALS: BP 127/69; TEMP 97.2; O2SAT 93
[2025-01-27 06:29] LABS: PLATELET COUNT, AUTOMATED 264 10^3/uL (150-450)
[2025-01-27 07:01] LABS: CALCIUM LEVEL 8.2 MG/DL (8.3-10.6); CARBON DIOXIDE LEVEL 38 MMOL/L (20-31); CHLORIDE LEVEL 88 MMOL/L (98-107); CREATININE FOR GFR 0.54 MG/DL (0.55-1.30); GLOMERULAR FILTRATION RATE > 90.0 (>32); MAGNESIUM LEVEL 1.8 MG/DL (1.8-2.4); POTASSIUM SERUM 5.4 MMOL/L (3.5-5.1); SODIUM LEVEL 132 MMOL/L (136-145)
[2025-01-27 14:00] VITALS: BP 135/73; TEMP 97.9; O2SAT 97
[2025-01-27 20:52] VITALS: BP 137/71; TEMP 97.7; O2SAT 96
[2025-01-27] MEDS: SENNA 8.6 MG TAB PO PRN (20:58)
[2025-01-28 06:19] VITALS: BP 145/76; TEMP 97.3; O2SAT 94
[2025-01-28 07:33] LABS: PLATELET COUNT, AUTOMATED 307 10^3/uL (150-450)
[2025-01-28 07:58] LABS: CALCIUM LEVEL 8.9 MG/DL (8.3-10.6); CARBON DIOXIDE LEVEL 37 MMOL/L (20-31); CHLORIDE LEVEL 90 MMOL/L (98-107); CREATININE FOR GFR 0.49 MG/DL (0.55-1.30); GLOMERULAR FILTRATION RATE > 90.0 (>32); MAGNESIUM LEVEL 1.7 MG/DL (1.8-2.4); POTASSIUM SERUM 5.4 MMOL/L (3.5-5.1); SODIUM LEVEL 132 MMOL/L (136-145)
[2025-01-28] MEDS: SENNOSIDES/DOCUSATE SODIUM 8.6 MG/50MG TAB PO SCH (09:00)
[2025-01-28] MEDS: MIRALAX *UNIT DOSE* 17 GM PACKET PO SCH (09:00)
[2025-01-28] MEDS: PATIROMER SORBITEX CALCIUM 8.4GM POWDER PACKET PO ONE (13:02)
[2025-01-28 14:00] VITALS: BP 143/81; TEMP 97.9; O2SAT 98
[2025-01-28 21:18] VITALS: BP 142/63; TEMP 97.7; O2SAT 92
[2025-01-29 06:08] VITALS: BP 134/68; TEMP 97.9; O2SAT 96
[2025-01-29 07:36] LABS: PLATELET COUNT, AUTOMATED 305 10^3/uL (150-450)
[2025-01-29 07:41] VITALS: O2SAT 99
[2025-01-29 08:03] LABS: CALCIUM LEVEL 9.0 MG/DL (8.3-10.6); CARBON DIOXIDE LEVEL 36 MMOL/L (20-31); CHLORIDE LEVEL 88 MMOL/L (98-107); CREATININE FOR GFR 0.47 MG/DL (0.55-1.30); GLOMERULAR FILTRATION RATE > 90.0 (>32); MAGNESIUM LEVEL 1.6 MG/DL (1.8-2.4); POTASSIUM SERUM 4.9 MMOL/L (3.5-5.1); SODIUM LEVEL 130 MMOL/L (136-145)
[2025-01-29 11:27] VITALS: O2SAT 99
[2025-01-29 14:39] VITALS: BP 147/74; TEMP 97.9; O2SAT 97
[2025-01-29 20:31] VITALS: BP 141/75; TEMP 98.4; O2SAT 91
[2025-01-30 06:22] VITALS: BP 113/48; TEMP 96.6; O2SAT 98
[2025-01-30 07:28] LABS: PLATELET COUNT, AUTOMATED 293 10^3/uL (150-450)
[2025-01-30 07:44] LABS: CALCIUM LEVEL 8.3 MG/DL (8.3-10.6); CARBON DIOXIDE LEVEL 35 MMOL/L (20-31); CHLORIDE LEVEL 90 MMOL/L (98-107); CREATININE FOR GFR 0.52 MG/DL (0.55-1.30); GLOMERULAR FILTRATION RATE > 90.0 (>32); MAGNESIUM LEVEL 1.8 MG/DL (1.8-2.4); POTASSIUM SERUM 4.7 MMOL/L (3.5-5.1); SODIUM LEVEL 132 MMOL/L (136-145)
[2025-01-30 08:08] VITALS: O2SAT 99
[2025-01-30] MEDS ORDERED: PRED20TA PO (11:40)
[2025-01-30] MEDS ORDERED: LEVO1TAB38 PO (11:40)
[2025-01-30 14:00] VITALS: BP 156/71; TEMP 97.9; O2SAT 96
[2025-01-30 20:47] VITALS: BP 145/65; TEMP 97.5; O2SAT 97
[2025-01-30 21:59] VITALS: BP 145/65
[2025-01-31 05:29] VITALS: BP 129/70; TEMP 97.7; O2SAT 93
[2025-01-31 07:25] LABS: PLATELET COUNT, AUTOMATED 313 10^3/uL (150-450)
[2025-01-31 07:57] LABS: CALCIUM LEVEL 8.6 MG/DL (8.3-10.6); CARBON DIOXIDE LEVEL 35 MMOL/L (20-31); CHLORIDE LEVEL 92 MMOL/L (98-107); CREATININE FOR GFR 0.48 MG/DL (0.55-1.30); GLOMERULAR FILTRATION RATE > 90.0 (>32); MAGNESIUM LEVEL 1.8 MG/DL (1.8-2.4); POTASSIUM SERUM 5.2 MMOL/L (3.5-5.1); SODIUM LEVEL 132 MMOL/L (136-145)
[2025-01-31 14:00] VITALS: BP 167/74; TEMP 97.7; O2SAT 98
== END 2025-01-31 15:20 | disposition home health service (06) ==
LOC: M ED 19:40 → M ED INP 19:41 → M MS5PR 01-24 07:50 → OBSVTOIN 01-29 08:29 → INTOOBSV 01-29 08:29
PROVIDERS: ADMIT Internal Medicine; ATTEND Family Medicine
DX: T83.518A Infection and inflammatory reaction due to other urinary catheter, initial encounter (principal); Z66 Do not resuscitate; N39.0 Urinary tract infection, site not specified; J96.11 Chronic respiratory failure with hypoxia; J44.1 Chronic obstructive pulmonary disease with (acute) exacerbation; Z99.81 Dependence on supplemental oxygen; E03.9 Hypothyroidism, unspecified; E87.1 Hypo-osmolality and hyponatremia; E87.5 Hyperkalemia; I10 Essential (primary) hypertension; K59.00 Constipation, unspecified; R33.9 Retention of urine, unspecified; K21.9 Gastro-esophageal reflux disease without esophagitis; R26.89 Other abnormalities of gait and mobility; Z79.890 Hormone replacement therapy; Z79.899 Other long term (current) drug therapy; Z79.52 Long term (current) use of systemic steroids; Z79.51 Long term (current) use of inhaled steroids
CPT/HCPCS: 36415; 71045; 80048; 80053; 80076; 81001; 82550; 82553; 83735; 84484; 85025; 85027; 87088; 87186; 87486; 87581; 87633; 87798; 93005; 93041; 94640; 94760; 96365; 96366; 96372; 96376; 97116; 97162; 97530; 99285; J0696; J1596; J1650; J7512

== ENCOUNTER 2025-02-08 17:14 | Emergency (ER) | payer MEDICARE ==
[~2025-02-08] VITALS: Ht 162.6 cm; Wt 60.3 kg
[~2025-02-08 17:14] MED LIST changes: +CIPR7.5D2 AS; +LISI20TA33 PO; +SODI1TAB12 PO
[2025-02-08 17:38] VITALS: TEMP 97.5
[2025-02-08 17:48] LABS: VENOUS BASE EXCESS 16.2 (-2.0-2.0); VENOUS HCO3 46.6 MMOL/L (23.0-27.0); VENOUS O2 SATURATION 55.9 % (60.0-80.0); VENOUS PARTIAL PRESSURE CO2 96.5 mmHg (38.0-50.0); VENOUS PARTIAL PRESSURE O2 32.0 mmHg (30.0-50.0); VENOUS PH 7.302 UNITS (7.330-7.430); VENOUS STANDARD HCO3 39.1 MMOL/L; VENOUS TOTAL CO2 49.6 MMOL/L (24.0-28.0)
[2025-02-08 17:53] LABS: BASO # 0.0 10^3/uL (0.0-0.2); BASO % 0.6 % (0.0-1.0); EOS # 0.2 10^3/uL (0.0-0.5); EOS % 3.2 % (0.0-3.0); LYMPH # 1.0 10^3/uL (1.5-5.0); LYMPH % 13.9 % (24.0-44.0); MONO # 0.9 10^3/uL (0.0-0.8); MONO % 12.7 % (2.0-8.0); NEUTROPHILS # 4.7 10^3/uL (1.5-8.5); NEUTROPHILS % 68.3 % (36.0-66.0); PLATELET COUNT, AUTOMATED 227 10^3/uL (150-450)
[2025-02-08 17:55] LABS: KETONE, URINE AUTO RFX NEGATIVE (NEGATIVE); LEUKOCYTE ESTERASE UR AUTO RFX 3+ (NEGATIVE); MUCUS, URINE RFX SMALL (NEGATIVE); NITRITE, URINE AUTO RFX NEGATIVE (NEGATIVE); RBC, URINE AUTO RFX 29 /HPF (0-3); SQUAM EPITHELIAL CELL UR AURFX 1 /HPF (0-6); WBC, URINE AUTO RFX TNTC /HPF (0-3)
[2025-02-08] MEDS: IPRATROPIUM 0.5 MG/ALBUTEROL 2.5 MG INH SOL UD 3 ML NEB ONE (17:57)
[2025-02-08] MEDS: ALBUTEROL SULFATE 2.5 MG/0.5 ML INH CONCENTRATE NEB SOLN INH ONE (17:57)
[2025-02-08 18:03] VITALS: O2SAT 95
[2025-02-08 18:15] VITALS: BP 131/60; O2SAT 100
[2025-02-08 18:22] LABS: CK-MB VALUE MASS 2.0 NG/ML (<3.6)
[2025-02-08] MEDS: PIPERACILLIN/TAZOBACTAM SOD 3.375 GM in DEXTROSE 5% (D5W) ADV/MINI-BAG 50 ML IV ONE (18:23)
[2025-02-08 18:25] LABS: THYROXINE (T4) 8.7 UG/DL (4.5-10.9)
[2025-02-08 18:32] LABS: ALT/SGPT 14 U/L (7.0-40); AST/SGOT 23 U/L (<34); CALCIUM LEVEL 8.9 MG/DL (8.3-10.6); CARBON DIOXIDE LEVEL > 40.0 MMOL/L (20-31); CHLORIDE LEVEL 90 MMOL/L (98-107); CPK CREATINE PHOSPHOKINASE 27 U/L (34-145); CREATININE FOR GFR 0.47 MG/DL (0.55-1.30); GLOMERULAR FILTRATION RATE > 90.0 (>32); MB/CK RELATIVE INDEX 7.40 (< OR =4); POTASSIUM SERUM 4.9 MMOL/L (3.5-5.1); SODIUM LEVEL 136 MMOL/L (136-145)
[2025-02-08 18:44] LABS: ABG BASE EXCESS 9.7 (-2.0-2.0); ABG HCO3 35.7 MMOL/L (22.0-26.0); ABG O2 SATURATION 99.0 % (95.0-99.0); ABG PARTIAL PRESSURE CO2 56.5 mmHg (35.0-45.0); ABG PARTIAL PRESSURE O2 174.4 mmHg (75.0-100.0); ABG STANDARD HCO3 33.5 MMOL/L. (22.0-26.0); ABG TOTAL CO2 37.4 MMOL/L (23.0-31.0); ABG pH (ARTERIAL) 7.418 UNITS (7.350-7.450)
[2025-02-08] MEDS ORDERED: ISOVUE-370 76% 100 ML VIAL As Ordered ONE (18:48)
[2025-02-08 19:05] LABS: CK-MB VALUE MASS 3.9 NG/ML (<3.6)
[2025-02-08 19:27] LABS: CPK CREATINE PHOSPHOKINASE 160 U/L (34-145); MB/CK RELATIVE INDEX 2.43 (< OR =4)
[2025-02-08] MEDS ORDERED: CEFP100T PO (22:16)
[2025-02-08] MEDS: ACETAMINOPHEN 325 MG TAB PO ONE (22:34)
== END 2025-02-08 23:09 | disposition home or self-care (01) ==
LOC: M ED 17:14 → EDBD 17:14 → M ED 23:09
DX: T83.511A Infection and inflammatory reaction due to indwelling urethral catheter, initial encounter (principal); K59.00 Constipation, unspecified; N28.1 Cyst of kidney, acquired; I10 Essential (primary) hypertension; E78.5 Hyperlipidemia, unspecified; J44.9 Chronic obstructive pulmonary disease, unspecified; Z99.81 Dependence on supplemental oxygen; E03.9 Hypothyroidism, unspecified; K21.9 Gastro-esophageal reflux disease without esophagitis; G25.0 Essential tremor; Z87.891 Personal history of nicotine dependence; Z79.899 Other long term (current) drug therapy; Z88.8 Allergy status to other drugs, medicaments and biological substances
CPT/HCPCS: 36600; 71045; 71275; 74177; 80047; 80048; 80076; 81001; 82550; 82553; 82803; 83605; 83690; 83880; 84145; 84436; 84443; 84484; 85025; 87040; 87077; 87088; 87154; 87186; 87486; 87581; 87633; 87798; 93005; 93041; 94640; 94760; 96374; 96375; 99285; J2543; J2919; Q9967

== ENCOUNTER 2025-02-24 18:29 | Observation (INO) | payer MEDICARE ==
[~2025-02-24] VITALS: Ht 162.6 cm; Wt 44.2 kg
[~2025-02-24 18:29] MED LIST changes: +CEFP100T PO
[2025-02-24 19:05] LABS: BASO # 0.0 10^3/uL (0.0-0.2); BASO % 0.8 % (0.0-1.0); EOS # 0.3 10^3/uL (0.0-0.5); EOS % 5.4 % (0.0-3.0); LYMPH # 1.1 10^3/uL (1.5-5.0); LYMPH % 22.5 % (24.0-44.0); MONO # 0.8 10^3/uL (0.0-0.8); MONO % 16.7 % (2.0-8.0); NEUTROPHILS # 2.6 10^3/uL (1.5-8.5); NEUTROPHILS % 54.2 % (36.0-66.0); PLATELET COUNT, AUTOMATED 257 10^3/uL (150-450)
[2025-02-24 19:27] LABS: CK-MB VALUE MASS 2.9 NG/ML (<3.6)
[2025-02-24 19:28] LABS: CPK CREATINE PHOSPHOKINASE 39 U/L (34-145); MB/CK RELATIVE INDEX 7.43 (< OR =4)
[2025-02-24] MEDS: IPRATROPIUM 0.5 MG/ALBUTEROL 2.5 MG INH SOL UD 3 ML NEB SCH (19:56)
[2025-02-24] MEDS: NITROGLYCERIN 0.4 MG SUBL TABLET SL PRN (19:56)
[2025-02-24 19:59] LABS: D-DIMER QUANT 0.37 ug/mL (<0.5); INR 0.86
[2025-02-24 20:17] LABS: ALT/SGPT 16 U/L (7.0-40); AST/SGOT 17 U/L (<34); CALCIUM LEVEL 8.8 MG/DL (8.3-10.6); CARBON DIOXIDE LEVEL 33 MMOL/L (20-31); CHLORIDE LEVEL 89 MMOL/L (98-107); CREATININE FOR GFR 0.57 MG/DL (0.55-1.30); GLOMERULAR FILTRATION RATE > 90.0 (>32); POTASSIUM SERUM 4.4 MMOL/L (3.5-5.1); SODIUM LEVEL 129 MMOL/L (136-145)
[2025-02-24 20:18] LABS: FREE T4 1.96 NG/DL (0.89-1.76)
[2025-02-24 20:56] LABS: CK-MB VALUE MASS 3.1 NG/ML (<3.6)
[2025-02-24 21:06] LABS: CPK CREATINE PHOSPHOKINASE 48.0 U/L (34-145); MB/CK RELATIVE INDEX 6.45 (< OR =4)
[2025-02-24 23:54] LABS: KETONE, URINE AUTO RFX NEGATIVE (NEGATIVE); NITRITE, URINE AUTO RFX NEGATIVE (NEGATIVE); RBC, URINE AUTO RFX 5 /HPF (0-3); SQUAM EPITHELIAL CELL UR AURFX 0 /HPF (0-6); WBC, URINE AUTO RFX 2 /HPF (0-3)
[2025-02-25 00:01] LABS: LEUKOCYTE ESTERASE UR AUTO RFX TRACE (NEGATIVE)
[2025-02-25 00:08] LABS: SODIUM,RANDOM URINE 123.0 MMOL/L
[2025-02-25] MEDS ORDERED: IPRATROPIUM 0.5 MG/ALBUTEROL 2.5 MG INH SOL UD 3 ML NEB PRN (00:30)
[2025-02-25 01:00] LABS: VENOUS BASE EXCESS 2.7 (-2.0-2.0); VENOUS HCO3 27.5 MMOL/L (23.0-27.0); VENOUS O2 SATURATION 98.8 % (60.0-80.0); VENOUS PARTIAL PRESSURE CO2 43.0 mmHg (38.0-50.0); VENOUS PARTIAL PRESSURE O2 145.4 mmHg (30.0-50.0); VENOUS PH 7.423 UNITS (7.330-7.430); VENOUS STANDARD HCO3 26.9 MMOL/L; VENOUS TOTAL CO2 28.8 MMOL/L (24.0-28.0)
[2025-02-25] MEDS: IPRATROPIUM 0.5 MG/ALBUTEROL 2.5 MG INH SOL UD 3 ML NEB SCH (03:16)
[2025-02-25] MEDS: cefTRIAXone SOD 1 GM in DEXTROSE 5% (D5W) ADV/MINI-BAG 50 ML IV SCH (03:26)
[2025-02-25] MEDS: ACETAMINOPHEN *IV* 1,000 MG in IV 1 EA IV ONE (03:30)
[2025-02-25] MEDS ORDERED: MIRALAX *UNIT DOSE* 17 GM PACKET PO PRN (04:25)
[2025-02-25] MEDS: LEVOTHYROXINE 100 MCG TABLET (0.1 MG) PO SCH (05:21)
[2025-02-25 07:40] LABS: PLATELET COUNT, AUTOMATED 237 10^3/uL (150-450)
[2025-02-25 08:03] LABS: CALCIUM LEVEL 8.8 MG/DL (8.3-10.6); CARBON DIOXIDE LEVEL 27 MMOL/L (20-31); CHLORIDE LEVEL 90 MMOL/L (98-107); CREATININE FOR GFR 0.51 MG/DL (0.55-1.30); GLOMERULAR FILTRATION RATE > 90.0 (>32); MAGNESIUM LEVEL 1.7 MG/DL (1.8-2.4); POTASSIUM SERUM 5.2 MMOL/L (3.5-5.1); SODIUM LEVEL 127 MMOL/L (136-145)
[2025-02-25] MEDS: PANTOPRAZOLE 40MG TAB PO SCH (08:17)
[2025-02-25] MEDS: predniSONE 20 MG TAB PO SCH (08:17)
[2025-02-25] MEDS: SENNOSIDES/DOCUSATE SODIUM 8.6 MG/50MG TAB PO SCH (08:17)
[2025-02-25] MEDS: ENOXAPARIN 40 MG/0.4 ML SYRINGE (J1650 PER 10MG) SC SCH (08:18)
[2025-02-25] MEDS ORDERED: TAMSULOSIN 0.4 MG CAP PO SCH (09:00)
[2025-02-25] MEDS ORDERED: HOME MED LIST COMPLETE! XX SCH (09:40)
[2025-02-25] MEDS: MAG SULF 1GM/100ML (MAG RUN) 1 GM in IV 1 EA IV ONE (10:06)
[2025-02-25] MEDS: PROPRANOLOL 10 MG TAB PO SCH ×2 (11:02→20:46)
[2025-02-25] MEDS: SIMETHICONE 80MG CHEW TAB PO SCH (14:27)
[2025-02-25] MEDS: SODIUM CHLORIDE 1 GM TAB PO SCH (14:27)
[2025-02-25 18:03] VITALS: BP 180/90; TEMP 97.3; O2SAT 98
[2025-02-25] MEDS: BUDESONIDE 0.5 MG/2 ML INHALATION SUSPENSION NEB SCH (19:49)
[2025-02-25 20:03] VITALS: BP 181/96; TEMP 97.9; O2SAT 100
[2025-02-25 20:06] VITALS: BP 192/116
[2025-02-25] MEDS: TAMSULOSIN 0.4 MG CAP PO SCH (20:19)
[2025-02-25] MEDS: OMEPRAZOLE 20MG CAP PO SCH (20:19)
[2025-02-25] MEDS: ACETAMINOPHEN 500 MG TAB PO PRN (20:20)
[2025-02-25] MEDS: amLODIPine 10 MG TAB PO SCH (20:20)
[2025-02-25] MEDS ORDERED: PILL CUTTER 1 EACH XX PRN (20:45)
[2025-02-25 21:00] VITALS: BP 135/65; O2SAT 97
[2025-02-25] MEDS ORDERED: PROPRANOLOL 10 MG TAB PO SCH (21:00)
[2025-02-25] MEDS ORDERED: amLODIPine 5 MG TAB PO SCH (21:00)
[2025-02-25 21:45] LABS: CALCIUM LEVEL 9.0 MG/DL (8.3-10.6); CARBON DIOXIDE LEVEL 36 MMOL/L (20-31); CHLORIDE LEVEL 91 MMOL/L (98-107); CREATININE FOR GFR 0.55 MG/DL (0.55-1.30); GLOMERULAR FILTRATION RATE > 90.0 (>32); POTASSIUM SERUM 4.6 MMOL/L (3.5-5.1); SODIUM LEVEL 130 MMOL/L (136-145)
[2025-02-25] MEDS: guaiFENesin SYRUP 200 MG/10 ML UDC PO PRN (22:15)
[2025-02-26 03:16] VITALS: BP 111/57; TEMP 97.3; O2SAT 97
[2025-02-26 06:48] LABS: BASO # 0.0 10^3/uL (0.0-0.2); BASO % 0.3 % (0.0-1.0); EOS # 0.0 10^3/uL (0.0-0.5); EOS % 0.3 % (0.0-3.0); LYMPH # 1.5 10^3/uL (1.5-5.0); LYMPH % 21.9 % (24.0-44.0); MONO # 1.2 10^3/uL (0.0-0.8); MONO % 18.2 % (2.0-8.0); NEUTROPHILS # 3.9 10^3/uL (1.5-8.5); NEUTROPHILS % 58.8 % (36.0-66.0); PLATELET COUNT, AUTOMATED 279 10^3/uL (150-450)
[2025-02-26 07:21] LABS: CALCIUM LEVEL 8.6 MG/DL (8.3-10.6); CARBON DIOXIDE LEVEL 34 MMOL/L (20-31); CHLORIDE LEVEL 93 MMOL/L (98-107); CREATININE FOR GFR 0.59 MG/DL (0.55-1.30); GLOMERULAR FILTRATION RATE > 90.0 (>32); MAGNESIUM LEVEL 1.8 MG/DL (1.8-2.4); POTASSIUM SERUM 4.3 MMOL/L (3.5-5.1); SODIUM LEVEL 134 MMOL/L (136-145)
[2025-02-26 08:45] VITALS: O2SAT 98
[2025-02-26] MEDS ORDERED: RAMELTEON 8 MG TAB PO PRN (10:35)
[2025-02-26] MEDS: NAPROXEN 250 MG TAB PO PRN (11:05)
[2025-02-26 12:00] VITALS: BP 113/56; TEMP 97.3; O2SAT 97
[2025-02-26] MEDS: ALBUTEROL SULFATE 2.5 MG/0.5 ML INH CONCENTRATE NEB SOLN NEB SCH (12:00)
[2025-02-26] MEDS: LEVALBUTEROL 1.25 MG 0.5ML CONCENTRATE NEB INH SCH (15:01)
[2025-02-26] MEDS: DOCUSATE SODIUM 100 MG CAPSULE PO SCH (20:04)
[2025-02-26 20:08] VITALS: BP 155/67; TEMP 97.3; O2SAT 96
[2025-02-27 04:40] VITALS: BP 143/73; TEMP 97.2; O2SAT 97
[2025-02-27 08:45] VITALS: BP 139/58
[2025-02-27 10:06] LABS: BASO # 0.0 10^3/uL (0.0-0.2); BASO % 0.3 % (0.0-1.0); EOS # 0.0 10^3/uL (0.0-0.5); EOS % 0.4 % (0.0-3.0); LYMPH # 1.5 10^3/uL (1.5-5.0); LYMPH % 20.6 % (24.0-44.0); MONO # 1.2 10^3/uL (0.0-0.8); MONO % 16.1 % (2.0-8.0); NEUTROPHILS # 4.5 10^3/uL (1.5-8.5); NEUTROPHILS % 61.9 % (36.0-66.0); PLATELET COUNT, AUTOMATED 329 10^3/uL (150-450)
[2025-02-27 10:27] LABS: CALCIUM LEVEL 8.7 MG/DL (8.3-10.6); CARBON DIOXIDE LEVEL 37 MMOL/L (20-31); CHLORIDE LEVEL 92 MMOL/L (98-107); CREATININE FOR GFR 0.57 MG/DL (0.55-1.30); GLOMERULAR FILTRATION RATE > 90.0 (>32); POTASSIUM SERUM 4.2 MMOL/L (3.5-5.1); SODIUM LEVEL 131 MMOL/L (136-145)
[2025-02-27] MEDS ORDERED: AMLO1TAB25 PO (10:29)
[2025-02-27] MEDS ORDERED: HYDR-3363 PO (10:29)
[2025-02-27] MEDS ORDERED: PRED10TA2 PO (10:29)
== END 2025-02-27 15:21 | disposition home or self-care (01) ==
LOC: M ED 18:29 → EDBD 18:29 → M ED INP 02-25 01:39 → M MSPAV 02-25 17:53
PROVIDERS: ADMIT Student in an Organized Health Care Education/Training Program; ATTEND Internal Medicine Nephrology
DX: J44.1 Chronic obstructive pulmonary disease with (acute) exacerbation (principal); J96.11 Chronic respiratory failure with hypoxia; R33.9 Retention of urine, unspecified; I16.0 Hypertensive urgency; D72.829 Elevated white blood cell count, unspecified; E87.0 Hyperosmolality and hypernatremia; N30.90 Cystitis, unspecified without hematuria; E03.9 Hypothyroidism, unspecified; K21.9 Gastro-esophageal reflux disease without esophagitis; K59.00 Constipation, unspecified; Z79.2 Long term (current) use of antibiotics; Z79.899 Other long term (current) drug therapy; Z88.8 Allergy status to other drugs, medicaments and biological substances; I10 Essential (primary) hypertension; R25.1 Tremor, unspecified
CPT/HCPCS: 36415; 71045; 80048; 80076; 81001; 82550; 82553; 82570; 82803; 83735; 83880; 84300; 84439; 84443; 84484; 85025; 85027; 85379; 85610; 87086; 87486; 87507; 87581; 87633; 87798; 93005; 93041; 94640; 94760; 96361; 96365; 96366; 96372; 96375; 97116; 97161; 99285; G0378; J0131; J0696; J1100; J1650; J3475; J7512

== ENCOUNTER 2025-03-29 20:18 | Inpatient (IN) | payer MEDICARE ==
[~2025-03-29] VITALS: Ht 170.2 cm; Wt 46.5 kg
[~2025-03-29 20:18] MED LIST changes: +AMLO1TAB25 PO
[2025-03-29 20:49] LABS: VENOUS BASE EXCESS 6.1 (-2.0-2.0); VENOUS HCO3 34.4 MMOL/L (23.0-27.0); VENOUS O2 SATURATION 89.1 % (60.0-80.0); VENOUS PARTIAL PRESSURE CO2 69.5 mmHg (38.0-50.0); VENOUS PARTIAL PRESSURE O2 60.7 mmHg (30.0-50.0); VENOUS PH 7.313 UNITS (7.330-7.430); VENOUS STANDARD HCO3 29.8 MMOL/L; VENOUS TOTAL CO2 36.6 MMOL/L (24.0-28.0)
[2025-03-29 20:50] LABS: BASO # 0.0 10^3/uL (0.0-0.2); BASO % 0.7 % (0.0-1.0); EOS # 0.3 10^3/uL (0.0-0.5); EOS % 5.6 % (0.0-3.0); LYMPH # 0.9 10^3/uL (1.5-5.0); LYMPH % 16.3 % (24.0-44.0); MONO # 1.0 10^3/uL (0.0-0.8); MONO % 18.1 % (2.0-8.0); NEUTROPHILS # 3.1 10^3/uL (1.5-8.5); NEUTROPHILS % 58.7 % (36.0-66.0); PLATELET COUNT, AUTOMATED 281 10^3/uL (150-450)
[2025-03-29 21:22] LABS: ALT/SGPT 17 U/L (7.0-40); AST/SGOT 21 U/L (<34); CALCIUM LEVEL 9.2 MG/DL (8.3-10.6); CARBON DIOXIDE LEVEL 34 MMOL/L (20-31); CHLORIDE LEVEL 95 MMOL/L (98-107); CREATININE FOR GFR 0.45 MG/DL (0.55-1.30); GLOMERULAR FILTRATION RATE > 90.0 (>32); POTASSIUM SERUM 4.8 MMOL/L (3.5-5.1); SODIUM LEVEL 138 MMOL/L (136-145)
[2025-03-29] MEDS: IPRATROPIUM 0.5 MG/2.5 ML (0.02%) SOLN NEB NEB ONE (21:46)
[2025-03-29 21:52] LABS: KETONE, URINE AUTO RFX NEGATIVE (NEGATIVE); LEUKOCYTE ESTERASE UR AUTO RFX NEGATIVE (NEGATIVE); MUCUS, URINE RFX SMALL (NEGATIVE); NITRITE, URINE AUTO RFX NEGATIVE (NEGATIVE); RBC, URINE AUTO RFX 4 /HPF (0-3); SQUAM EPITHELIAL CELL UR AURFX 0 /HPF (0-6); WBC, URINE AUTO RFX 0 /HPF (0-3)
[2025-03-29] MEDS ORDERED: IPRATROPIUM 0.5 MG/2.5 ML (0.02%) SOLN NEB NEB ONE (22:00)
[2025-03-29] MEDS: ALBUTEROL SULFATE 2.5 MG/0.5 ML INH CONCENTRATE NEB SOLN NEB ONE (22:12)
[2025-03-29 22:26] LABS: CK-MB VALUE MASS 2.3 NG/ML (<3.6)
[2025-03-29 22:34] LABS: CPK CREATINE PHOSPHOKINASE 37 U/L (34-145); MB/CK RELATIVE INDEX 6.21 (< OR =4)
[2025-03-29] MEDS ORDERED: MOM 30 ML SUSPENSION UDC PO PRN (22:50)
[2025-03-30] VITALS (19 sets, daily range): BP systolic 110–159; BP diastolic 56–74; TEMP 97–98.5; O2SAT 90–100
[2025-03-30] MEDS ORDERED: ALBUTEROL SULFATE 2.5 MG/0.5 ML INH CONCENTRATE NEB SOLN NEB PRN
[2025-03-30] MEDS: AZITHROMYCIN 250 MG TABLET PO SCH (00:24)
[2025-03-30] MEDS: IPRATROPIUM 0.5 MG/ALBUTEROL 2.5 MG INH SOL UD 3 ML NEB SCH (00:47)
[2025-03-30] MEDS: FUROSEMIDE 100 MG/10 ML VIAL IV ONE (00:51)
[2025-03-30] MEDS: ACETAMINOPHEN 325 MG TAB PO PRN (01:06)
[2025-03-30] MEDS ORDERED: AMLO1TAB25 PO (01:49)
[2025-03-30] MEDS ORDERED: HOME MED LIST COMPLETE! XX SCH (02:15)
[2025-03-30] MEDS ORDERED: HYDR-3363 PO (02:15)
[2025-03-30] MEDS ORDERED: SENN1TAB85 PO (02:15)
[2025-03-30] MEDS ORDERED: PILL CUTTER 1 EACH XX PRN (02:20)
[2025-03-30] MEDS ORDERED: SENNOSIDES/DOCUSATE SODIUM 8.6 MG/50MG TAB PO PRN (02:30)
[2025-03-30] MEDS: LEVOTHYROXINE 100 MCG TABLET (0.1 MG) PO SCH (05:06)
[2025-03-30] MEDS: TAMSULOSIN 0.4 MG CAP PO SCH (05:06)
[2025-03-30 05:42] LABS: BASO # 0.0 10^3/uL (0.0-0.2); BASO % 0.5 % (0.0-1.0); EOS # 0.0 10^3/uL (0.0-0.5); EOS % 0.0 % (0.0-3.0); LYMPH # 0.3 10^3/uL (1.5-5.0); LYMPH % 12.7 % (24.0-44.0); MONO # 0.0 10^3/uL (0.0-0.8); MONO % 1.9 % (2.0-8.0); NEUTROPHILS # 1.8 10^3/uL (1.5-8.5); NEUTROPHILS % 84.0 % (36.0-66.0); PLATELET COUNT, AUTOMATED 294 10^3/uL (150-450)
[2025-03-30 06:17] LABS: CALCIUM LEVEL 9.1 MG/DL (8.3-10.6); CARBON DIOXIDE LEVEL > 40.0 MMOL/L (20-31); CHLORIDE LEVEL 90 MMOL/L (98-107); CREATININE FOR GFR 0.55 MG/DL (0.55-1.30); GLOMERULAR FILTRATION RATE > 90.0 (>32); MAGNESIUM LEVEL 1.7 MG/DL (1.8-2.4); POTASSIUM SERUM 4.4 MMOL/L (3.5-5.1); SODIUM LEVEL 136 MMOL/L (136-145)
[2025-03-30] MEDS: LOSARTAN 25 MG TAB PO SCH (09:00)
[2025-03-30] MEDS: HEPARIN SOD 5000 UNITS/ML 1 ML VIAL/SYRINGE SC SCH (09:00)
[2025-03-30] MEDS: DOCUSATE SODIUM 100 MG CAPSULE PO SCH (09:00)
[2025-03-30] MEDS: MIRALAX *UNIT DOSE* 17 GM PACKET PO SCH (09:00)
[2025-03-30] MEDS: SODIUM CHLORIDE 1 GM TAB PO SCH (10:05)
[2025-03-30] MEDS: OMEPRAZOLE 20MG CAP PO SCH (10:05)
[2025-03-30] MEDS: MULTIVITAMINS/MINERALS THERAP 1 TAB PO SCH (10:05)
[2025-03-30] MEDS: guaiFENesin ER TABLET 600 MG TAB PO SCH (10:05)
[2025-03-30] MEDS: MAG SULF 1GM/100ML (MAG RUN) 1 GM in IV 1 EA IV SCH (10:06)
[2025-03-30] MEDS: PROPRANOLOL 10 MG TAB PO SCH (10:10)
[2025-03-30] MEDS: BUDESONIDE 0.5 MG/2 ML INHALATION SUSPENSION INH SCH (10:37)
[2025-03-30] MEDS: SALMETEROL DISKUS 50MCG INHALER (SEREVENT) INH SCH (10:37)
[2025-03-30] MEDS ORDERED: ISOVUE-370 76% 100 ML VIAL As Ordered ONE (12:02)
[2025-03-30] MEDS: amLODIPine 10 MG TAB PO SCH (20:38)
[2025-03-31] VITALS (24 sets, daily range): BP systolic 99–139; BP diastolic 52–71; TEMP 97.5–98.9; O2SAT 89–98
[2025-03-31] MEDS: diphenhydrAMINE 50 MG/ML VIAL IV ONE (01:33)
[2025-03-31 05:53] LABS: BASO # 0.0 10^3/uL (0.0-0.2); BASO % 0.0 % (0.0-1.0); EOS # 0.0 10^3/uL (0.0-0.5); EOS % 0.0 % (0.0-3.0); LYMPH # 0.3 10^3/uL (1.5-5.0); LYMPH % 3.7 % (24.0-44.0); MONO # 0.3 10^3/uL (0.0-0.8); MONO % 3.1 % (2.0-8.0); NEUTROPHILS # 7.7 10^3/uL (1.5-8.5); NEUTROPHILS % 92.7 % (36.0-66.0); PLATELET COUNT, AUTOMATED 326 10^3/uL (150-450)
[2025-03-31 06:27] LABS: CALCIUM LEVEL 9.1 MG/DL (8.3-10.6); CARBON DIOXIDE LEVEL 37 MMOL/L (20-31); CHLORIDE LEVEL 92 MMOL/L (98-107); CREATININE FOR GFR 0.58 MG/DL (0.55-1.30); GLOMERULAR FILTRATION RATE > 90.0 (>32); MAGNESIUM LEVEL 2.1 MG/DL (1.8-2.4); POTASSIUM SERUM 3.8 MMOL/L (3.5-5.1); SODIUM LEVEL 138 MMOL/L (136-145)
[2025-03-31] MEDS: MORPHINE 10 MG/0.5 ML ORAL CONCENTRATE SOLUTION U/D SL STA (10:48)
[2025-03-31] MEDS: SIMETHICONE 80MG CHEW TAB PO SCH (10:49)
[2025-03-31] MEDS ORDERED: MORPHINE 10 MG/0.5 ML ORAL CONCENTRATE SOLUTION U/D SL PRN (12:35)
[2025-03-31] MEDS: IPRATROPIUM 0.5 MG/2.5 ML (0.02%) SOLN NEB INH PRN (15:19)
[2025-03-31] MEDS: LEVALBUTEROL 1.25 MG 0.5ML CONCENTRATE NEB INH PRN (15:19)
[2025-03-31] MEDS: LORazepam 0.5 MG TAB PO PRN (18:45)
[2025-04-01] VITALS (18 sets, daily range): BP systolic 117–144; BP diastolic 56–67; TEMP 97.3–97.8; O2SAT 92–100
[2025-04-01 06:20] LABS: BASO # 0.0 10^3/uL (0.0-0.2); BASO % 0.1 % (0.0-1.0); EOS # 0.0 10^3/uL (0.0-0.5); EOS % 0.0 % (0.0-3.0); LYMPH # 0.5 10^3/uL (1.5-5.0); LYMPH % 5.0 % (24.0-44.0); MONO # 0.7 10^3/uL (0.0-0.8); MONO % 7.2 % (2.0-8.0); NEUTROPHILS # 8.8 10^3/uL (1.5-8.5); NEUTROPHILS % 86.5 % (36.0-66.0); PLATELET COUNT, AUTOMATED 372 10^3/uL (150-450)
[2025-04-01 06:39] LABS: CALCIUM LEVEL 8.7 MG/DL (8.3-10.6); CARBON DIOXIDE LEVEL 38 MMOL/L (20-31); CHLORIDE LEVEL 96 MMOL/L (98-107); CREATININE FOR GFR 0.50 MG/DL (0.55-1.30); GLOMERULAR FILTRATION RATE > 90.0 (>32); MAGNESIUM LEVEL 2.1 MG/DL (1.8-2.4); POTASSIUM SERUM 4.9 MMOL/L (3.5-5.1); SODIUM LEVEL 140 MMOL/L (136-145)
[2025-04-01] MEDS: LORazepam 0.5 MG TAB PO SCH (14:00)
[2025-04-01] MEDS ORDERED: ATROPINE SULFATE 1% OPHTH SOLN 2 ML BTL SL PRN (16:00)
[2025-04-01] MEDS ORDERED: POLYVINYL ALCOHOL OPHTH SOLN 15ML (LIQUITEARS) OU PRN (16:00)
[2025-04-01] MEDS ORDERED: SALIVA SUBSTITUTE BTL MT PRN (16:00)
[2025-04-01] MEDS ORDERED: SENNA 8.6 MG TAB PO PRN (16:00)
[2025-04-01] MEDS ORDERED: MIRALAX *UNIT DOSE* 17 GM PACKET PO PRN (16:00)
[2025-04-01] MEDS: SIMETHICONE 80MG CHEW TAB PO SCH (18:02)
[2025-04-01] MEDS: SODIUM CHLORIDE 1 GM TAB PO SCH (18:02)
[2025-04-01] MEDS: LORazepam 0.5 MG TAB PO PRN (18:03)
[2025-04-01] MEDS ORDERED: BENZONATATE 100 MG CAPSULE PO ONE (18:55)
[2025-04-01] MEDS ORDERED: guaiFENesin SYRUP 200 MG/10 ML UDC PO PRN (19:10)
[2025-04-01] MEDS: TAMSULOSIN 0.4 MG CAP PO SCH (20:33)
[2025-04-01] MEDS: PROPRANOLOL 10 MG TAB PO SCH (20:33)
[2025-04-01] MEDS: CARBAMIDE PEROXIDE 6.5% OTIC SOLN 15 ML AS SCH (20:33)
[2025-04-02] MEDS: predniSONE 20 MG TAB PO SCH (09:26)
[2025-04-02 09:27] VITALS: BP 122/65
[2025-04-02] MEDS: guaiFENesin SYRUP 200 MG/10 ML UDC PO PRN (12:04)
[2025-04-02] MEDS ORDERED: LORazepam 0.5 MG TAB PO SCH (14:00)
[2025-04-02] MEDS: LORazepam 1 MG TAB PO SCH (14:36)
[2025-04-02] MEDS: LORazepam 0.5 MG TAB PO PRN (16:04)
[2025-04-02] MEDS: HYOSCYAMINE SULFATE 0.125 MG SUBL TABLET SL PRN (18:50)
[2025-04-02] MEDS: ONDANSETRON 4MG ORAL DISINTEGRATING TAB PO PRN (21:51)
[2025-04-02] MEDS: MAALOX 30 ML SUSP *UDC PO PRN (22:51)
[2025-04-02] MEDS: MORPHINE 10 MG/0.5 ML ORAL CONCENTRATE SOLUTION U/D SL PRN (22:56)
[2025-04-03] MEDS: LORazepam 0.5 MG TAB PO SCH (14:25)
[2025-04-04] MEDS: LORazepam 1 MG TAB PO SCH (14:27)
[2025-04-05] MEDS: MORPHINE 10 MG/0.5 ML ORAL CONCENTRATE SOLUTION U/D SL PRN (16:03)
== END 2025-04-07 06:12 | disposition expired | DRG 189 ==
LOC: M ED 20:18 → M ED INP 22:47 → M PCU 03-30 00:33 → M MS5PR 04-01 20:52
PROVIDERS: ADMIT Student in an Organized Health Care Education/Training Program; ATTEND Internal Medicine
DX: J96.21 Acute and chronic respiratory failure with hypoxia (principal); G92.8 Other toxic encephalopathy; E43 Unspecified severe protein-calorie malnutrition; J44.1 Chronic obstructive pulmonary disease with (acute) exacerbation; E87.1 Hypo-osmolality and hyponatremia; Z68.1 Body mass index [BMI] 19.9 or less, adult; Z66 Do not resuscitate; E03.9 Hypothyroidism, unspecified; R57.1 Hypovolemic shock; I10 Essential (primary) hypertension; G25.0 Essential tremor; R33.9 Retention of urine, unspecified; K21.9 Gastro-esophageal reflux disease without esophagitis; E87.70 Fluid overload, unspecified; F41.1 Generalized anxiety disorder; J96.22 Acute and chronic respiratory failure with hypercapnia; K59.09 Other constipation; E83.42 Hypomagnesemia; Z90.49 Acquired absence of other specified parts of digestive tract; Z87.891 Personal history of nicotine dependence; Z79.890 Hormone replacement therapy; Z79.51 Long term (current) use of inhaled steroids; Z79.899 Other long term (current) drug therapy; Z88.5 Allergy status to narcotic agent; Z99.81 Dependence on supplemental oxygen